=== PATIENT | male | born 1980 | race Two or more races ===

== ENCOUNTER → 2019-11-23 | Outpatient (CLI) | payer BC, SELFPAY ==
[2019-11-23 08:02] VITALS: BMI 35.6
[2019-11-23 11:22] LABS: Absolute Lymphocyte Count 1.55 X10^3/uL (0.83-4.51); Absolute Neutrophil Count 4.3 X10^3/uL (2.0-7.7); Basophil# 0.07 X10^3/uL; Basophil% 1.1 % (0-1); Eosinophil# 0.13 X10^3/uL; Hematocrit 48.4 % (40-54); Hemoglobin 16.9 g/dL (13.0-16.5); Lymphocyte # 1.55 X10^3/ul (4.0); Lymphocyte % 23.5 % (19-41); Mean Corp Hgb Conc 34.9 g/dL (32-36); Mean Corpuscular Hgb 31.1 pg (27.0-32.0); Mean Corpuscular Volume 89.1 fL (80-94); Mean Platelet Vol. 11.7 fl (6.2-12.0); Monocyte# 0.56 X10^3/uL; Monocyte% 8.5 % (0-10); NRBC Flagged by Analyzer 0 % (0-5); Neutrophil # 4.28 X10^3/uL (2.7-7.7); Neutrophil % 64.7 % (47-70); POSITIVE COUNT YES; Platelet Count 179 K/mm3 (150-450); RBC Distribution Width SD 42.2 fl (35.1-43.9); Red Blood Count 5.43 M/mm3 (4.6-6.2); White Blood Count 6.6 K/mm3 (4.4-11.0)
[2019-11-23 11:32] LABS: Differential Indicated SCAN CRITERIA MET
[2019-11-23 11:41] LABS: ALB/GLOB Ratio 1.1 RATIO (0.9-2.4); AST(SGOT) 36 U/L (15-37); Alanine Aminotransfer ALT/SGPT 53 U/L (16-61); Albumin, Serum 4.2 g/dL (3.2-5.0); Alkaline Phosphatase 66 U/L (45-117); BUN 14 mg/dL (7-18); BUN/Creat Ratio 16.4 RATIO (10-20); Calcium,Total 9.6 mg/dL (8.5-10.1); Cholesterol 127 mg/dL (200); Creatinine, Serum 0.85 mg/dL (0.70-1.30); EST Glomerular Filtration Rate 106 mL/min (>60); Est Glom Filt Rate - Afr Amer 128 mL/min (>60); Globulin 3.9 g/dL (2.2-4.2); Glucose 216 mg/dL (74-106); Protein, Total 8.1 g/dL (6.4-8.2); Triglycerides 58 mg/dL
[2019-11-23 11:42] LABS: Anion Gap 9 (5-15); Chloride 103 mmol/L (98-107); High Density Lipoprotein 53 mg/dL; Sodium Level 138 mmol/L (136-145); Very Low Density Lipoprotein 12 mg/dL (5-40)
[2019-11-23 15:21] LABS: Microalbumin,Random Urine 8.5 mg/L (NO RANGE EST.); Microalbumin:Creatinine Ratio 6.6 mg/g CRE (<30 mg/g CRE)
== END | disposition home or self-care (01) ==
LOC: LABSPEC 10:47
PROVIDERS: PCP Internal Medicine; Referring Provider Internal Medicine; Visit Provider Internal Medicine
DX: E10.9 Type 1 diabetes mellitus without complications (principal)
CPT/HCPCS: 80053; 80061; 82043; 82570; 85025

== ENCOUNTER → 2020-07-15 15:42 | Outpatient (CLI) | payer BC, SELFPAY ==
[2020-07-15 15:12] VITALS: BMI 34.6
[2020-07-15 16:50] LABS: Anion Gap 6 (5-15); BUN 19 mg/dL (7-18); BUN/Creat Ratio 23.3 RATIO (10-20); Calcium,Total 9.8 mg/dL (8.5-10.1); Chloride 102 mmol/L (98-107); Creatinine, Serum 0.81 mg/dL (0.70-1.30); EST Glomerular Filtration Rate 112 mL/min (>60); Est Glom Filt Rate - Afr Amer 135 mL/min (>60); Glucose 80 mg/dL (74-106); Potassium 3.7 mmol/L (3.5-5.1); Sodium Level 141 mmol/L (136-145)
== END ==
PROVIDERS: PCP Internal Medicine; Referring Provider Internal Medicine; Visit Provider Internal Medicine
DX: I10 Essential (primary) hypertension (principal)
CPT/HCPCS: 36415; 80048

== ENCOUNTER → 2021-03-10 08:49 | Outpatient (CLI) | payer OTHER, SELFPAY ==
[2021-03-10 12:39] LABS: Vitamin D,25 Hydroxy 36.4 ng/mL
[2021-03-10 12:54] LABS: ALB/GLOB Ratio 1.1 RATIO (0.9-2.4); AST(SGOT) 23 U/L (15-37); Alanine Aminotransfer ALT/SGPT 53 U/L (16-61); Albumin, Serum 4.1 g/dL (3.2-5.0); Alkaline Phosphatase 58 U/L (45-117); Anion Gap 9 (5-15); BUN 19 mg/dL (7-18); BUN/Creat Ratio 25.1 RATIO (10-20); Calcium,Total 9.4 mg/dL (8.5-10.1); Chloride 105 mmol/L (98-107); Cholesterol 137 mg/dL (200); Creatinine, Serum 0.76 mg/dL (0.70-1.30); EST Glomerular Filtration Rate 121 mL/min (>60); Est Glom Filt Rate - Afr Amer 147 mL/min (>60); Globulin 3.9 g/dL (2.2-4.2); Glucose 168 mg/dL (74-106); High Density Lipoprotein 56 mg/dL; Potassium 3.6 mmol/L (3.5-5.1); Sodium Level 138 mmol/L (136-145); Thyroid Stim Hormone (TSH) 1.99 uIU/mL (0.358-3.74); Triglycerides 48 mg/dL; Very Low Density Lipoprotein 10 mg/dL (5-40)
[2021-03-15 20:07] LABS: Testosterone, Free 18.72 ng/dL (5.00-21.00)
[2021-03-16 12:44] LABS: Testosterone, % Free 3.12 % (1.50-4.20); Testosterone, Total 600 ng/dL (264-916)
== END ==
PROVIDERS: Internal Medicine Endocrinology, Diabetes & Metabolism; PCP Internal Medicine; Referring Provider Nurse Practitioner Family; Visit Provider Nurse Practitioner Family
DX: E10.9 Type 1 diabetes mellitus without complications (principal); E78.2 Mixed hyperlipidemia; I10 Essential (primary) hypertension; R53.83 Other fatigue
CPT/HCPCS: 36415; 80053; 80061; 82306; 84402; 84403; 84443

== ENCOUNTER → 2021-11-25 | Outpatient (CLI) | payer OTHER, SELFPAY ==
[2021-11-25 12:44] LABS: Vitamin D,25 Hydroxy 28.1 ng/mL
[2021-11-25 12:50] LABS: ALB/GLOB Ratio 1.1 RATIO (0.9-2.4); AST(SGOT) 27 U/L (15-37); Alanine Aminotransfer ALT/SGPT 56 U/L (16-61); Albumin, Serum 3.8 g/dL (3.2-5.0); Alkaline Phosphatase 57 U/L (45-117); Anion Gap 3 (5-15); BUN 18 mg/dL (7-18); BUN/Creat Ratio 21.4 RATIO (10-20); Calcium,Total 8.9 mg/dL (8.5-10.1); Chloride 107 mmol/L (98-107); Cholesterol 134 mg/dL (200); Creatinine, Serum 0.84 mg/dL (0.70-1.30); EST Glomerular Filtration Rate 107 mL/min (>60); Est Glom Filt Rate - Afr Amer 129 mL/min (>60); Globulin 3.6 g/dL (2.2-4.2); Glucose 175 mg/dL (74-106); High Density Lipoprotein 46 mg/dL; Potassium 4.3 mmol/L (3.5-5.1); Protein, Total 7.4 g/dL (6.4-8.2); Sodium Level 141 mmol/L (136-145); Thyroid Stim Hormone (TSH) 2.37 uIU/mL (0.358-3.74); Triglycerides 47 mg/dL; Very Low Density Lipoprotein 9 mg/dL (5-40)
== END | disposition home or self-care (01) ==
LOC: BIMLAB 08:46
PROVIDERS: PCP Internal Medicine; Referring Provider Nurse Practitioner Family; Visit Provider Nurse Practitioner Family
DX: E10.65 Type 1 diabetes mellitus with hyperglycemia (principal)
CPT/HCPCS: 36415; 80053; 80061; 82306; 84443

== ENCOUNTER → 2023-02-09 | Outpatient (CLI) | payer BC, SELFPAY ==
[2023-02-09 11:03] LABS: Vitamin D,25 Hydroxy 45.9 ng/mL
[2023-02-09 11:07] LABS: Hemoglobin A1c 7.1 % (3.8-5.6)
[2023-02-09 11:11] LABS: Microalbumin,Random Urine 9.5 mg/L (NO RANGE EST.); Microalbumin:Creatinine Ratio 7.7 mg/g CRE (<30 mg/g CRE)
[2023-02-09 11:14] LABS: ALB/GLOB Ratio 1.1 RATIO (0.9-2.4); AST(SGOT) 34 U/L (15-37); Alanine Aminotransfer ALT/SGPT 70 U/L (16-61); Alkaline Phosphatase 67 U/L (45-117); Anion Gap 3 (5-15); BUN 12 mg/dL (7-18); BUN/Creat Ratio 13.5 RATIO (10-20); Calcium,Total 8.9 mg/dL (8.5-10.1); Chloride 103 mmol/L (98-107); Cholesterol 161 mg/dL (200); Creatinine, Serum 0.89 mg/dL (0.70-1.30); EST Glomerular Filtration Rate 100 mL/min (>60); Est Glom Filt Rate - Afr Amer 121 mL/min (>60); Globulin 3.7 g/dL (2.2-4.2); Glucose 173 mg/dL (74-106); High Density Lipoprotein 63 mg/dL; Potassium 3.7 mmol/L (3.5-5.1); Protein, Total 7.7 g/dL (6.4-8.2); Sodium Level 136 mmol/L (136-145); Thyroid Stim Hormone (TSH) 3.02 uIU/mL (0.358-3.74); Triglycerides 57 mg/dL; Very Low Density Lipoprotein 11 mg/dL (5-40)
== END | disposition home or self-care (01) ==
LOC: LAB 10:14
PROVIDERS: PCP Internal Medicine; Referring Provider Nurse Practitioner Family; Visit Provider Nurse Practitioner Family
DX: E10.65 Type 1 diabetes mellitus with hyperglycemia (principal); E55.9 Vitamin D deficiency, unspecified
CPT/HCPCS: 36415; 80053; 80061; 82043; 82306; 82570; 83036; 84443

== ENCOUNTER → 2025-01-17 | Outpatient (CLI) | payer OTHER, SELFPAY ==
--- OUTSIDE RECORDS SUMMARY | 2025-01-17 06:49 | XMS RPT_ITS | CCD ---
Author Organization [facility] Care Team Providers Care Straddle Truck Driver Name Role Phone Dr. Chong Lopez Primary Care Provider Dr. Chong Lopez Referring Provider [phone] YADIEL Stephens Attending Provider TERRY CHATTERJEE Attending Unavailable Ben Fung MD Primary Care Provider NITO MEEHAN Attending Unavailable BEN FUNG Primary Care Unavailable Oleghe, Efewongbe Primary Care Unavailable Aurora Stephens Attending Unavailable Oleghe, Efewongbe Referring Unavailable Aurora Stephens Attending Unavailable Oleghe, Efewongbe Referring Unavailable Oleghe, Efewongbe Primary Care Unavailable Aurora Stephens Attending Unavailable Oleghe, Efewongbe Referring Unavailable Oleghe, Efewongbe Primary Care Unavailable Medications Current Medications Medication Drug Class(es) Dates Sig (Normalized) Sig (Original) atorvastatin 40 mg oral tablet (10 sources) HMG-CoA Reductase Inhibitor Start: 09-27-2019 End: 09-17-2021 take 40 mg by mouth once daily Atorvastatin Active 40 MG PO DAILY September 17, 2021 12:57pm Flash Glucose Scanning Austin (Freestyle Genie 2 Austin) misc (2 sources) Start: 08-24-2021 Flash Glucose Scanning Austin (Freestyle Genie 2 [place]) misc Active 0 .ROUTE .MEDSUPPLY August 24, 2021 11:21am As directed Start: 04-07-2021 End: 08-24-2021 Flash Glucose Scanning Reade r (Freestyle Genie 2 [place]) misc Discontinued 0 .ROUTE .MEDSUPPLY April 07, 2021 1:25pm February 14th, 2022 11:21am As directed Flash Glucose Sensor (Freest yle Genie 2 Sensor) kit (2 sources) Start: 07-20-2021 Flash Glucose Sensor (Freestyle Genie 2 Sensor) kit Active 0 .ROUTE .MEDSUPPLY 2 July 20, 2021 9:27am As directed Start: 04-07-2021 End: 07-20-2021 Flash Glucose Sensor (Freest yle Genie 2 Sensor) kit Discontinued 0 .ROUTE .MEDSUPPLY 2 April 07, 2021 1:26pm July 20, 2021 9:27am As directed hydroCHLOROthiazide 25 mg / losartan potassium 100 mg oral tablet (4 sources) Thiazide Diuretic, Angiotensin 2 Receptor Jaclyn Start: 10-10-2020 End: 10-13-2021 take 1 tablet by mouth once daily Losartan-Hydrochlorothiazide Active 1 TABLET PO DAILY 90 October 13, 2021 10:57pm 3 ml insulin glargine 100 unt/ml pen injector (7 sources) Insulin Analog Start: 10-10-2020 End: 07-20-2021 Insulin Glargine (Lantus Solostar U-100 Insulin) 100 unit/mL (3 mL) insulin pen Active 70 UNIT SC DAILY 63 July 20, 2021 9:27am Start: 09-27-2019 End: 10-10-2020 Insulin Glargine (Lantus Janey ostar U-100 Insulin) 100 unit/mL (3 mL) insulin pen Discontinued 80 UNIT SC DAILY 30 July 22, 2020 12:42pm October 10, 2020 8:29am 3 ml insulin lispro 100 unt/ml pen injector (8 sources) Insulin Analog Start: 09-27-2019 End: 07-20-2021 Insulin Lispro (Humalog Kwikpen Insulin) 100 unit/mL insulin pen Active 20 UNIT SC 3 to 4 times per day 72 July 20, 2021 9:27am insulin lispro ( HUMALOG KWIKPEN INSULIN SUBCUTANEOUS) Inject subcutaneously. 0 Active Comment on above: Inject subcutaneousl y. Pen Needle,Diabetic, Disp Unit (3 sources) Start: 10-19-2021 Pen Needle,Diabetic, Disp Unit Active 0 .ROUTE .MEDSUPPLY 360 October 19, 2021 1:05pm 4x/day Start: 11-04-2020 End: 04-11-2022 Pen Needle,Diabetic, Disp Un it Discontinued 0 .ROUTE .MEDSUPPLY 100 November 04, 2020 12:19pm October 19, 2021 1:06pm as directed Start: 11-04-2020 End: 11-04-2020 Pen Needle,Diabetic, Disp Un it Discontinued 0 .ROUTE .MEDSUPPLY 100 November 04, 2020 12:13pm November 04, 2020 12:19pm as directed sertraline 50 mg oral tablet (1 source) Serotonin Reuptake Inhibitor Start: 11-25-2021 take 50 mg by mouth once daily Sertraline Active 50 MG PO DAILY November 25, 2021 8:40am Completed/Discontinued Medications Medication Drug Class(es) Dates Sig (Normalized) Sig (Original) Blood-Glucose Sensor (Dexcom G6 Sensor) device (4 sources) Start: 03-19-2021 End: 07-20-2021 Blood-Glucose Sensor (Dexcom G6 Sensor) device Discontinued 0 .ROUTE .MEDSUPPLY 3 March 19, 2021 3:06pm July 20, 2021 9:18am As directed Start: 03-10-2021 End: 03-19-2021 Blood-Glucose Sensor (Dexcom G6 Sensor) device Discontinued 0 .ROUTE .MEDSUPPLY 3 March 10, 2021 9:57am March 19, 2021 3:07pm As directed Start: 02-11-2021 End: 03-10-2021 Blood-Glucose Sensor (Dexcom G6 Sensor) device Discontinued 0 .ROUTE .MEDSUPPLY 3 February 11, 2021 8:28am March 10, 2021 9:57am As directed Start: 07-01-2020 End: 02-11-2021 Blood-Glucose Sensor (Dexcom G6 Sensor) device Discontinued 0 .ROUTE .MEDSUPPLY 3 July 01, 2020 3:29pm February 11, 2021 8:28am As directed Blood-Glucose Transmitter (Dexcom G6 Transmitter) device (4 sources) Start: 03-19-2021 End: 07-20-2021 Blood-Glucose Transmitter (Dexcom G6 Transmitter) device Discontinued 0 .ROUTE .MEDSUPPLY 1 March 19, 2021 12:19pm July 20, 2021 9:18am As directed Start: 03-19-2021 End: 03-19-2021 Blood-Glucose Transmitter (D excom G6 Transmitter) device Discontinued 0 .ROUTE .MEDSUPPLY 1 March 19, 2021 11:01am March 19, 2021 12:19pm As directed Start: 03-10-2021 End: 03-19-2021 Blood-Glucose Transmitter (D excom G6 Transmitter) device Discontinued 0 .ROUTE .MEDSUPPLY 1 March 10, 2021 9:57am March 19, 2021 11:01am As directed Start: 07-01-2020 End: 03-10-2021 Blood-Glucose Transmitter (D excom G6 Transmitter) device Discontinued 0 .ROUTE .MEDSUPPLY July 01, 2020 3:28pm March 10, 2021 9:57am As directed enalapril maleate 20 mg oral tablet (2 sources) Angiotensin Converting Enzyme Inhibitor Start: 09-27-2019 End: 10-10-2020 take 20 mg by mouth once daily Enalapril Maleate Discontinued 20 MG PO DAILY November 23, 2019 11:05am October 10, 2020 8:49am hydroCHLOROthiazide 12.5 mg oral tablet (3 sources) Thiazide Diuretic Start: 09-27-2019 End: 10-10-2020 take 12.5 mg by mouth once daily Hydrochlorothiazide Discontinued 12.5 MG PO DAILY November 23, 2019 11:05am October 10, 2020 8:49am HYDROCHLOROTHIAZ SHARON ORAL Take by mouth. 0 Active Comment on above: Take by mouth. insulin glargine,hum.rec.anlog (LANTUS SUBCUTANEOUS) (1 source) insulin glargine,hum.rec.anlo g (LANTUS SUBCUTANEOUS) Inject subcutaneously. 0 Active Comment on above: Inject subcutaneousl y. ketorolac tromethamine 10 mg oral tablet (1 source) Nonsteroidal Anti-inflammatory Drug, Cyclooxygenase Inhibitor Start: take 1 tablet by mouth every six hours as needed ketorolac (TORADOL) 10 mg tablet Take 1 tablet by mouth every 6 hours as needed. 10 tablet 0 07/01/2018 Active Comment on above: Take 1 tablet by ignacio th every 6 hours as needed. lactobacillus acidophilus 460 mg oral capsule (1 source) Start: take 1 capsule by mouth once daily Lactobacillus acidophilus (FLORAJEN) 460 mg (20 billion cell) cap Indications: Diarrhea, unspecified type Take 1 capsule by mouth once daily. 30 capsule 0 10/27/2017 Active Comment on above: Take 1 capsule by mo uth once daily. methocarbamol 750 mg oral tablet (1 source) Muscle Relaxant Start: 024 take 1 tablet by mouth three times daily as needed methocarbamol (ROBAXIN-750) 750 mg tablet Take 1 tablet by mouth three times a day as needed. 60 tablet 0 08/31/2023 Active Comment on above: Take 1 tablet by ignacio th three times a day as needed. ondansetron 4 mg disintegrating oral tablet (1 source) Serotonin-3 Receptor Antagonist Start: take 1 tablet by mouth every six hours ondansetron orally disintegrating (ZOFRAN ODT) 4 mg disintegrating tablet Take 1 tablet by mouth every 6 hours. 12 tablet 0 07/01/2018 Active Comment on above: Take 1 tablet by ignacio th every 6 hours. tamsulosin hydrochloride 0.4 mg oral capsule (1 source) alpha-Adrenergic Jaclyn Start: take 1 capsule by mouth once daily at bedtime tamsulosin ER (FLOMAX) 0.4 mg cap Take 1 capsule by mouth daily at bedtime for 7 days. 7 capsule 0 07/01/2018 Active Comment on above: Take 1 capsule by mo uth daily at bedtime for 7 days. Problems Active Problems Problem Classification Problem Date Documented Da te Episodic/Chronic Calculus of urinary tract (1 source) Calculus of kidney; Translations: [Calculus of kidney] Onset: 07-01-2018 Episodic Diabetes mellitus with complications (1 source) Type 1 diabetes mellitus with hyperglycemia; Translations: [Type 1 diabetes mellitus with hyperglycemia] Onset: 07-16-2024 Chronic Diabetes mellitus without complication (3 sources) Type 1 diabetes mellitus; Translations: [Type 1 diabetes mellitus without complications] Onset: 07-16-2024 Chronic Disorders of lipid metabolism (2 sources) Mixed hyperlipidemia; Translations: [Mixed hyperlipidemia] Onset: 02-16-2024 Chronic Essential hypertension (3 sources) Hypertensive disorder; Translations: [Essential (primary) hypertension] Onset: 02-16-2024 Chronic Malaise and fatigue (1 source) Fatigue; Translations: [Other fatigue] Episodic Mood disorders (2 sources) Depressive disorder; Translations: [Depression] Chronic Other male genital disorders (3 sources) Male erectile dysfunction, unspecified; Translations: [Erectile dysfunction] Onset: 04-24-2022 Chronic Other nutritional; endocrine; and metabolic disorders (1 source) Obesity; Translations: [Obesity, unspecified] Chronic Other nutritional; endocrine; and metabolic disorders (1 source) Body mass index 30+ - obesity; Translations: [Obesity, unspecified] Chronic Other nutritional; endocrine; and metabolic disorders (1 source) Obesity, unspecified; Translations: [Obesity, unspecified] Chronic Other nutritional; endocrine; and metabolic disorders (1 source) Other obesity due to excess calories; Translations: [Other obesity due to excess calories] Onset: 02-16-2024 Chronic Other nutritional; endocrine; and metabolic disorders (1 source) Body mass index (BMI) 33.0-33.9, adult; Translations: [Body mass index [BMI] 33.0-33.9, adult] Onset: 02-16-2024 Chronic Spondylosis; intervertebral disc disorders; other back problems (2 sources) Cervical spondylosis without myelopathy; Translations: [Spondylosis without myelopathy or radiculopathy, cervical region] Onset: 08-31-2023 08-31-2023 Chronic Past or Other Problems Problem Classification Problem Date Documented Da te Episodic/Chronic Residual codes; unclassified (1 source) Early satiety; Translations: [Early satiety] Onset: 02-16-2024 Episodic Results Test Name Value Interpretation Reference Range Facility Endocrinology Visit Reporton 07-16-2024 Endocrinology Visit Report [facility] [address] [place] [address] OFFICE VISIT Date of Service: 07/16/24 MR#: [id number] Acct: [id number] Name: PURVI VIZCAINO Rep #: [id number] : 1980 Provider: YADIEL zimmer Age/Sex: 43/M Location: [facility] [place] Status: Signed Intake Vital Signs 02/06/24 08:36 07/16/24 14:03 Height 5 ft 5 in 5 ft 5 in Weight: 212 lb 220 lb 2 oz BMI 35.2 36.6 BP 137/81 H 128/84 H Blood Pressure Location Lt brachial Rt brachial Position Sitting Sitting Pulse 81 87 Pulse Source Monitor Monitor Pulse Oximetry (%) 97 97 Oxygen Delivery Method room air room air Intake Visit Reasons: 5 M FU Chief Complaint: f/u diabetes Is patient in pain?: No Allergies No Known Allergies Allergy (Verified 07/16/24 14:07) Medications ???Medication ???Instructions ???Recorded ???Confirmed ???Type Basaglar KwikPen U-100 Insulin 100 65 unit (0.65 mL) subcut DAILY #60 03/13/24 07/16/24 Rx unit/mL (3 mL) subcutaneous mL (insulin glargine) pen needle,diabetic, disp unit 31 #360 ea 03/21/24 07/16/24 Rx gauge x 3/16, remover and disposal unit insulin lispro 100 unit/mL 30 unit (0.3 mL) subcut TID #81 mL 04/09/24 07/16/24 Rx subcutaneous pen (Humalog KwikPen (U-100) Insulin) blood-glucose sensor (FreeStyle #2 ea 05/08/24 07/16/24 Rx Genie 3 Plus Sensor device) bupropion HCl 150 mg 24 hr tablet, See Rx Instructions .Route 05/25/24 07/16/24 Rx extended release .COMPLEX #90 tabs atorvastatin 40 mg tablet 40 mg PO DAILY #90 tabs 07/16/24 07/16/24 Rx blood-glucose sensor (Dexcom G7 #3 ea 07/16/24 07/16/24 Rx Sensor device) insulin pump cart,auto,BT,G6/7 #10 ea 07/16/24 07/16/24 Rx (Omnipod 5 G6-G7 Pods (Gen 5) subcutaneous cartridge) insulin pump cartridge,auto #1 ea 07/16/24 07/16/24 Rx dose,BT,G6/G7 with controller subcutaneous (Omnipod 5 G6-G7 Intro Kit(Gen 5) subcutaneous cartridge and controller) losartan 100 1 tab PO DAILY #90 tabs 07/16/24 07/16/24 Rx mg-hydrochlorothiazide 25 mg tablet PFSH Medical History PTSD (post-traumatic stress disorder) Erectile dysfunction Fatigue Kidney stones Hyperlipemia Hypertension Diabetes Surgical History History of shoulder surgery Family History Mother Arthritis Cancer Father Arthritis Hypertension Hyperlipemia Brother Diabetes Kidney disease Social History Smoking Status: Never smoker alcohol intake: current alcohol intake frequency: holidays/special occasions only substance use type: does not use what type of physical activity do you participate in: other details: Fitness frequency: daily duration: 30-45 minutes/day HPI HPI Chief Complaint: f/u diabetes Details: PURVI VIZCAINO, is a 43 M who presents to the office today for evaluation and management of diabetes. A1C today is 7.2%, increased slightly from 02/06/24 at 7.0%. He has gained 8 lbs. Currently taking Lantus 55 u once daily and Humalog 15-25 u TIDCM. CGM tracings reviewed- he is having post meal elevations, he treats these aggressively often times resulting in lows. He has lows during sleeping hours. Denies any significant episode of hypoglycemia that has required assistance from others. We have discussed insulin pumps multiple times in the past, he has been hesitant. BP controlled. Currently taking losartan-HCTZ 100-25 mg once daily. He takes a daily statin. He complains of myalgias with use. He is over due for labs. Denies any acute concerns. ROS Const Constitutional: Positive for weight change (gain); No fatigue ENT ENT: No dizziness/vertigo Cardio Cardiology: No chest pain at rest, chest pain with exertion, shortness of breath or palpitations Musc Musculoskeletal: Positive for joint pain Skin Skin: No wounds Endo Endocrine: Positive for weight change (gain); No fatigue Exam Const General: cooperative, healthy appearing, comfortable and no acute distress Nutritional Appearance: obese Orientation: alert, awake and oriented x3 HENMT Head: normal to inspection Ears: hearing grossly normal bilaterally Nose: external nose normal Face and sinus: normal facial exam Eyes General: appearance normal, both eyes and all related structures Alignment and Position: alignment normal Sclera: sclerae normal Neck Neck: normal visual inspection Chest Chest palpation inspection: normal inspection of the chest Resp Effort Inspection: normal respiratory effort, able to speak in complete sentences, symmetric chest movement and no audible wheezes (more content not included)... [facility] Endocrinology Visit Reporton 02-06-2024 Endocrinology Visit Report [facility] [address] [facility] [place] [address] OFFICE VISIT Date of Service: 02/06/24 MR#: [id number] Acct: [id number] Name: PURVI VIZCAINO Rep #: [id number] : 1980 Provider: YADIEL zimmer Age/Sex: 43/M [place] [facility] [place]: Signed Intake Vital Signs 09/12/23 08:07 02/06/24 08:36 Height 5 ft 5 in 5 ft 5 in Weight: 214 lb 4 oz 212 lb BMI 35.6 35.2 BP 136/82 H 137/81 H Blood Pressure Location Rt brachial Lt brachial Position Sitting Respiration 18 Pulse 78 81 Pulse Source Monitor Monitor Temp 98.6 F Temp Source Temporal Pulse Oximetry (%) 99 97 Oxygen Delivery Method room air room air Intake Visit Reasons: 5 M FU, RS 12/11 Chief Complaint: f/u diabetes Respiratory Therapy Manager Required: No Accompanied by: Self Is patient in pain?: No Allergies No Known Allergies Allergy (Verified 02/06/24 08:39) Medications ???Medication ???Instructions ???Recorded ???Confirmed ???Type atorvastatin 40 mg tablet 40 mg PO DAILY #90 tabs 09/12/23 02/06/24 Rx blood-glucose sensor (FreeStyle #2 ea 09/12/23 02/06/24 Rx Genie 3 Sensor device) insulin glargine 100 unit/mL (3 65 unit (0.65 mL) subcut DAILY 09/12/23 02/06/24 Rx mL) subcutaneous pen (Lantus #58.5 mL Solostar U-100 Insulin) losartan 100 1 tab PO DAILY #90 tabs 09/12/23 02/06/24 Rx mg-hydrochlorothiazide 25 mg tablet pen needle,diabetic, disp unit 31 #360 ea 09/12/23 02/06/24 Rx gauge x 3/16, remover and disposal unit insulin lispro 100 unit/mL 30 unit (0.3 mL) subcut TID #81 mL 10/20/23 02/06/24 Rx subcutaneous pen (Humalog KwikPen (U-100) Insulin) bupropion HCl 150 mg 24 hr tablet, See Rx Instructions .Route 11/28/23 02/06/24 Rx extended release .COMPLEX #90 tabs PFSH Medical History PTSD (post-traumatic stress disorder) Erectile dysfunction Fatigue Kidney stones Hyperlipemia Hypertension Diabetes Surgical History History of shoulder surgery Family History Mother Arthritis Cancer Father Arthritis Hypertension Hyperlipemia Brother Diabetes Kidney disease Social History Smoking Status: Never smoker alcohol intake: current alcohol intake frequency: holidays/special occasions only substance use type: does not use what type of physical activity do you participate in: other details: Fitness frequency: daily duration: 30-45 minutes/day HPI HPI Chief Complaint: f/u diabetes Details: PURVI VIZCAINO, is a 43 M who presents to the office today for evaluation and management of diabetes. A1C today is 7.0%, improved from 09/12/23 at 7.4%. he has lost another 2 lbs. CGM tracings reviewed: he is having occasional post meal elevations. He is having recurring lows after correcting for elevations. Currently taking Lantus 55 u once daily, and Humalog 15-40 u depending on carb servings. We have discussed insulin pumps at multiple prior appointments, he is not interested at this time. BP today is 137/81, consistent with last appt. Currently taking losartan-HCTZ 100-25 mg once daily. Hx of high cholesterol, currently taking atorvastatin 40 mg once daily. He complains of intermittent early satiety. Denies any significant weight loss, blood in stool, significant fatigue, or family history of colon ca. Of note, he typically smokes marijuana before smiley pper with improved appetite. He is also on Wellbutrin. He is due for labs. ROS Const Constitutional: No weight change Gastro GI: Positive for feeling full early; No Black,tarry stools Endo Endocrine: No weight change Exam Const General: cooperative, healthy appearing, comfortable and no acute distress Nutritional Appearance: obese Orientation: alert, awake and oriented x3 HENMT Head: normal to inspection Ears: hearing grossly normal bilaterally Nose: external nose normal Face and sinus: normal facial exam Eyes General: appearance normal, both eyes and all related structures Alignment and Position: alignment normal Sclera: sclerae normal Neck Neck: normal visual inspection Carotids: normal carotid upstroke Chest Chest palpation inspection: normal inspection of the chest Resp Effort Inspection: normal respiratory effort, able to speak in complete sentences, symmetric chest movement, normal respiratory pattern, no audible wheezes and no cough Auscultation: Bilateral: Clear to Auscultation Cardio Rate: regular rate Rhythm: regular rhythm Heart Sounds: S1 normal and S2 normal Bruits: no carotid bruits GI Inspection: normal to inspection and obesity Musc (more content not included)... [facility] Endocrinology Visit Reporton 09-12-2023 Endocrinology Visit Report [facility] [address] [facility] [address] [place] [address] OFFICE VISIT Date of Service: 09/12/23 MR#: [id number] Acct: [id number] Name: PURVI VIZCAINO Rep #: [id number] : 1980 Provider: YADIEL zimmer Age/Sex: 42/M [place] [facility] [place]: Signed Intake Vital Signs 05/16/23 08:36 09/12/23 08:07 Height 5 ft 5 in 5 ft 5 in Weight: 217 lb 4 oz 214 lb 4 oz BMI 36.1 35.6 BP 146/84 H 136/82 H Blood Pressure Location Rt brachial Rt brachial Position Sitting Respiration 16 18 Pulse 80 78 Pulse Source Monitor Monitor Temp 97.8 F 98.6 F Temp Source Temporal Temporal Pulse Oximetry (%) 98 99 Oxygen Delivery Method room air room air Intake Visit Reasons: 3.5 M FU Chief Complaint: f/u diabetes Respiratory Therapy Manager Required: No Accompanied by: Self Allergies No Known Allergies Allergy (Verified 09/12/23 08:12) Nurse's Note: Room 3 [facility] Medical History Diabetes Erectile dysfunction Fatigue Hyperlipemia Hypertension Kidney stones PTSD (post-traumatic stress disorder) Surgical History History of shoulder surgery Family History Mother Arthritis Cancer Father Arthritis Hypertension Hyperlipemia Brother Diabetes Kidney disease Social History Smoking Status: Never smoker alcohol intake: current alcohol intake frequency: holidays/special occasions only substance use type: does not use what type of physical activity do you participate in: other details: Fitness frequency: daily duration: 30-45 minutes/day HPI HPI Chief Complaint: f/u diabetes Details: PURVI VIZCAINO, is a 42 M who presents to the office today for evaluation and management of diabetes. A1C today is 7.4%, increased from 05/16/23 at 7.1%. He has lost 3 lbs. CGM tracings reviewed- GMI is 7.0%, blood sugars are <70 3% of the time. He is having lows followed by rebound elevations. He aggressively treats elevations with Humalog. Currently taking Lantus 60-64 u once daily- this is a higher dose than what was discussed at previous appointment, and Humalog 12-24 u TIDCM- this is a lower dose than discussed at previous appointment. We discussed insulin pump therapy at his last appointment, he does not wish to pursue at this time. BP today is 136/82, currently taking losartan-HCTZ 100-25 mg once daily. Reports compliance with medication regimen. Labs are up to date. Denies any acute concerns. Exam Const General: cooperative, healthy appearing, comfortable and no acute distress Nutritional Appearance: obese Orientation: alert, awake and oriented x3 [facility] Head: normal to inspection Ears: hearing grossly normal bilaterally Nose: external nose normal Face and sinus: normal facial exam Eyes General: appearance normal, both eyes and all related structures Alignment and Position: alignment normal Sclera: sclerae normal Neck Neck: normal visual inspection Carotids: normal carotid upstroke Chest Chest palpation inspection: normal inspection of the chest Resp Effort Inspection: normal respiratory effort, able to speak in complete sentences, symmetric chest movement, normal respiratory pattern, no audible wheezes and no cough Auscultation: Bilateral: Clear to Auscultation Cardio Rate: regular rate Rhythm: regular rhythm Heart Sounds: S1 normal and S2 normal Bruits: no carotid bruits GI Inspection: normal to inspection and obesity Musc Cervical Spine: normal cervical lordosis Thoracic/Lumbar Spine: thoracic and lumbar spine normal to inspection Skin General: no rashes or lesions noted Lesions: no lesions Rashes: no rashes Trauma: no lacerations or abrasions Wounds: no wounds Neuro General: patient alert, patient awake and patient oriented x3 Cognition: normal cognition Speech: speech normal Gait: normal gait Extrem General: normal to inspection and no pedal edema Psych Appearance: grossly normal Mental Status: mental status grossly normal Mood: congruent mood Affect: normal affect Speech and Movement: speech and movement normal Attitude: cooperative Thought Process: normal Thought Content: normal Judgment: judgment good Results POC A1C POC A1C 7.4 % Last Edit by Colleen Cornejo LPN on 09/12/23 08:16 Coding Level of Care Code Off vis,est,level 4 Diagnoses Type 1 diabetes mellitus with hyperglycemia E10.65 Diabetes mellitus complication status: with hyperglycemia Essential hypertension I10 Hypertension type: essential hypertension Mixed hyperlipidemia E78.2 Obesity (BMI 30-39.9) E66.9 Assessment and Plan (more content not included)... [facility] CNOVon 08-31-2023 CNOV Office Visit (NSFRVW ) ----- GRETCHENRICKY BAN Naresh ([id number]) 1980 M Date Time Provider Department 08/31/23 1:00 PM NITO MEEHAN NSFRVW During your visit today, we recorded the following information about you: Pulse Blood pressure Weight Height 91/minute 145/81 97.5 kg 1.676 m Nito Meehan MD 09/12/2023 7:51 AM Signed SPINE SURGERY NEW PATIENT This is an in-person visit. PCP: Ben Fung MD REFERRING PROVIDER: Not indicated SUBJECTIVE HISTORY OF PRESENT ILLNESS: Purvi Vizcaino is a 42 year old male presenting alone. The patient reports pain in his neck that started about 9 years ago. When he sits on the couch and watch TV, work, and use his phone his pain is bad. 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 When lying flat or stretching, the pain is better. He has not taken anything for the pain. He denies getting any injections. Pain occurs the most at the end of the day. CHIEF COMPLAINT: Neck pain PRECIPITATING EVENT: Work-related DURATION OF SYMPTOMS: Greater Than 1 Year PAIN EVALUATION 08/31/2023 1248 Pain Level: 2 Pain Location: Neck Description: Dull;Aching Frequency: Intermittent Pain Radiation: Neck pain may radiate to the shoulders Aggravating Factors: Working, watching TV, or using phone Alleviating Factors: Lying supine, Stretching Pain Ratio: 2/10 DERMATOMAL DISTRIBUTION: Not applicable AMBULATORY STATUS: Independent [facility] ANTIPLATELET OR ANTICOAGULATION STATUS: No PREVIOUS CONSERVATIVE TREATMENTS: None PREVIOUS SPINAL SURGERY: None There is no problem list on file for this patient. PAST MEDICAL HISTORY Diagnosis Date Diabetes (HCC) Hypertension PAST SURGICAL HISTORY Procedure Laterality Date ORTHOPEDICS SURGERY HX right shoulder scope No family history on file. Social History Tobacco Use Smoking status: Never Smokeless tobacco: Former Substance Use Topics Alcohol use: No Drug use: Yes Types: Marijuana Comment: last used 1 week ago ALLERGIES No Known Allergies MEDICATIONS: ketorolac (TORADOL) 10 mg tablet Take 1 tablet by mouth every 6 hours as needed. ondansetron orally disintegrating (ZOFRAN ODT) 4 mg disintegrating tablet Take 1 tablet by mouth every 6 hours. insulin glargine,hum.rec.anlog (LANTUS SUBCUTANEOUS) Inject subcutaneously. insulin lispro (HUMALOG KWIKPEN INSULIN SUBCUTANEOUS) Inject subcutaneously. HYDROCHLOROTHIAZIDE ORAL Take by mouth. Lactobacillus acidophilus (FLORAJEN) 460 mg (20 billion cell) cap Take 1 capsule by mouth once daily. methocarbamol (ROBAXIN-750) 750 mg tablet Take 1 tablet by mouth three times a day as needed. tamsulosin ER (FLOMAX) 0.4 mg cap Take 1 capsule by mouth daily at bedtime for 7 days. REVIEW OF SYSTEMS: PAIN ASSESSMENT: See HPI. GENERAL: Denies fever, chills malaise and weight loss. HEENT: No recent change in vision or hearing. CARDIOVASCULAR: Denies chest pain, history of A-fib, valvular disease, or pacemaker/ICD. RESPIRATORY: Denies SOB, sputum production, and hemoptysis. GI: Denies GI ulcers, inflammatory disease, or liver disease. : Denies change in frequency or urgency, kidney disease, and burning with urination. MUSCULOSKELETAL: Negative for joint pain or swelling, back pain or muscle pain. SKIN: Denies rash or itching. PSYCHOLOGICAL: Denies uncontrolled depression or anxiety. NEURO: Denies CVA, seizures, headaches. ENDOCRINE: Denies diabetes, thyroid disease. HEMATOLOGY/LYMPHOLOGY: Denies cancer, bleeding or clotting disorders, anemia,and DVT's. ALLERGIC/IMMUNOLOGICAL: Denies risks for infection, or recent MRSA infections. Patient Entered Questionnaires PROMIS Score Percentiles Percentiles provide an indication of how the patient's score ranks in relation to the general population. Higher percentile rankings indicate better function/quality of life. 50th percentile is the average of the general population and indicates half of respondents had a worse score. Depression Screening: PHQ-9 Self-Harm (Item 9) response options: 0 Not at all 1 Several days 2 More than half the days 3 Nearly every day PHQ-9 Levels: 0-4 No to mild depression 5-9 Mild depression 10-14 Moderate depression 15-19 Moderately severe depression 20-27 Severe depression OBJECTIVE: PHYSICAL EXAM BP 145/81 Pulse 91 Ht 167.6 cm (5' 6) Wt 97.5 kg (215 lb) SpO2 99% BMI 34.70 kg/m? Oriented x3 PERRL FS Motor: UE D 5/5, B 5/5, T 5/5, G 5/5, HI 5/5 LE HF 5/5, KE 5/5, DF 5/5, PF 5/5, EHL 5/5 Reflexes 2+ Naranjo negative NEURO TESTS: None DATA REVIEW MRI Cervical spine shows mild disc bulge possible herniation at C5-6 predominantly on the right side with no cord compression and mild to moderate foraminal stenosis on the right. ASSESSMENT/PLAN (M47.812) Cervical spondylosis without myelopathy (primary encounter di (more content not included)... [facility] 36on 09-13-2022 36 Called Pt and resche duled appt to 4.6.23 @1140 [facility] with Darius Chatterjee APRN- DEL. Pt aware of appt d/t/l. [facility] 36 Name of Caller: Ricky gibbs Contact Reason for Appointment: Pt has an appt on 09/16/2022 at 8:00 AM that he needs to reschedule. Please advise, thank you. Office Name: Urology Medication Refills need, if any: n/a Medication Name: n/a [facility] Office Visiton 05-20-2022 Follow-up visit [id number] Ricky Vizcaino 1980 M Date Provider Department Center 05/20/2022 [id number]-WFVOSFTERRY CHATTERJEE [facility] URO None No family history on file Level of Service:08468 CO OFFICE/OUTPATIENT ESTABLISHED LOW MDM 20-29 MIN Reason for Visit and Comments: Erectile Dysfunction [771299] - 6 month follow up [facility] Progress Noteon 05-20-2022 Progress Note Terry ye APRN - CASE LOADER OPERATOR 05/20/2022 at 5:13 PM Urology Office Visit PATIENT NAME: Purvi Vizcaino DATE OF : 1980 TODAY'S DATE: 05/20/2022 CHIEF COMPLAINT: Chief Complaint Patient presents with Erectile Dysfunction 6 month follow up Subjective: Mr. Vizcaino is a 41 y.o. male who presents to the office regarding ED. He was last seen in the office on 11/19/2021 for Trimix teaching Right now hes at 0.1ml He reports a 20% rigidity . He is very frustrated with the Trimix. He states that he feels like it is not working but admits to giving up and not trying a higher dose. He feels like he popped a blood vessel and it turned his penis black and blue He states that his penis is back to its normal color but hes also upset that his is not sexual and does not like to endorse in sexual intercourse as much as he does. He feels like he was not able to put the trimix to good use yet. No issues with drawing up the medication. He is a diabetic and is familiar with needles given the insulin injections he utilizes Review of Systems Constitutional: Negative for chills and fever. Genitourinary: Negative for decreased urine volume, difficulty urinating, dysuria, flank pain, frequency, hematuria, penile discharge, penile pain, penile swelling and urgency. Past Medical History: History reviewed. No pertinent past medical history. Past Surgical History: History reviewed. No pertinent surgical history. Medications Prior to Admission medications Medication Sig Start Date End Date Taking? Authorizing Provider atorvastatin (Lipitor) 40 MG tablet Take 1 tablet by mouth in the morning. 08/16/21 Yes Historical Provider, Continuous Blood Gluc Painter Set (FreeStyle Genie 2 [place]) device Yes Historical Provider, Continuous Blood Gluc Sensor (FreeStyle Genie 2 Sensor) misc Yes Historical Provider, insulin glargine (Lantus SoloStar) 100 UNIT/ML pen inject 70 units subcutaneously once daily 07/27/21 Yes Historical Provider, insulin lispro (HumaLOG) 100 UNIT/ML injection inject 20 units subcutaneously 3-4 TIMES PER DAY 07/24/21 Yes Historical Provider, insulin pen needle 31G x 5 mm misc Inject under the skin if needed. Use as instructed Yes Historical Provider, losartan-hydroCHLOROthiaz sharon (Hyzaar) 100-25 MG tablet Take 1 tablet by mouth in the morning. 07/20/21 Yes Historical Provider, Vitals: BP (!) 141/74 Pulse 96 Ht 5' 6 (1.676 m) Wt 208 lb (94.3 kg) BMI 33.57 kg/m? Physical Exam Vitals and nursing note reviewed. Constitutional: General: He is not in acute distress. Appearance: Normal appearance. Pulmonary: Effort: Pulmonary effort is normal. Abdominal: General: Abdomen is flat. There is no distension. Palpations: There is no mass. Tenderness: There is no abdominal tenderness. There is no right CVA tenderness or left CVA tenderness. Genitourinary: Penis: Normal. Testes: Normal. Skin: General: Skin is warm and dry. Neurological: Mental Status: He is alert and oriented to person, place, and time. Labs: No results found for: CREATININE No results found for: HGB, HCT, PSA, TESTOSTERONE Radiology Review: N/A Procedure: N/A Impression/Plan Diagnoses and all orders for this visit: Erectile dysfunction, unspecified erectile dysfunction type - here for a follow up - using trimix for ED - right now utilizing 0.1 ml still with no success - continue with Papaverine 30mg/Phentolamine 2mg/Alprostadil 20mcg/mL but plan to trial at 0.2 and increase the injection dose by 0.02-0.03ml, up to 0.5ml total. If he does not achieve an erection firm enough for penetration then we may write him the high dose; given he is not experiencing any adverse effects. He will call and let us know Side effects/ Complications of penile injections: Priapism - if you experience an erection that lasts longer than 3-4 hours and/ or is painful, please seek treatment right away. A prolonged erection is a medical emergency and required immediate attention to prevent permanent injury. Have Sudaphed on hand at home and take as soon as you notice there is a problem. Apply ice to the area If the erection does not go away within 20 minutes, please come to the ER. Pain from inappropriate injection site or medication Bruising at site of injection Infection of penile tissue Pressure and/ or aching sensations due to medication Development of scar tissue at the site of injection. If significant, this can result in curvature of the penis, which can make intercourse difficult. custodial side effects (greater than 15 years) are unknown. Follow up in 3 months Follow Up: Follow up in about 3 months (around 08/20/2022) for ED/Trimex. --Terry Chatterjee, DEL, PRIMER CHARGER on 05/20/2022 at 5:13 PM An electronic signature was used to authenticate this note. Normal [facility] Basophil percentageon 2021 Bilirubin [Mass/Vol] 0.50 mg/dL 0.20-1.00 [facility] Work Phone: Comment on above: For patients on eltr ombopag therapy, use of Dimension Camilla TBIL is not recommended. Chloride [Moles/Vol] 107 mmol/L 98-107 [facility] Work Phone: Cholesterol [Mass/Vol] 134 mg/dL <200 [facility] Work Phone: Comment on above: <200 mg/dL Desirable 200-240 mg/dL Borderline >240 mg/dL High Risk Glucose [Mass/Vol] 175 mg/dL 74-106 [facility] Work Phone: Comment on above: Fasting Glucose resu lt greater than or equal to 126 mg/dL suggests DIABETES MELLITUS per A.D.A. criteria. Potassium [Moles/Vol] 4.3 mmol/L 3.5-5.1 [facility] Work Phone: [phone] Protein [Mass/Vol] 7.4 g/dL 6.4-8.2 [facility] Work Phone: [phone] Sodium [Moles/Vol] 141 mmol/L 136-145 [facility] Work Phone: [phone] Triglyceride [Mass/Vol] 47 mg/dL [facility] Work Phone: [phone] Comment on above: The drugs N-Acetylcy steine and Metamizole may falsely depress this assay.Serum Triglycerides Reference Interval Normal <150 mg/dL Borderline high 150 - 199 mg/dL High 200 - 499 mg/dL Very High > or = 500 mg/dL Laboratory - Chemistry and C hemistry - challengeon 11-25-2021 ALP [Catalytic activity/Vol] 57 U/L 45-117 [facility] Work Phone: [phone] ALT [Catalytic activity/Vol] 56 U/L 16-61 [facility] Work Phone: [phone] CO2 [Moles/Vol] 31.0 mmol/L 21.0-32.0 [facility] Work Phone: [phone] Globulin (S) [Mass/Vol] 3.6 g/dL 2.2-4.2 [facility] Work Phone: [phone] Urea nitrogen/Creatinin e [Mass ratio] 21.4 mg/mg 10-20 [facility] Work Phone: [phone] Laboratory - Hematology and Cell countson 11-25-2021 HbA1c (Bld) [Mass fraction] 7.1 % [facility] Work Phone: [phone] No Panel Informationon 11-25 Estimated GFR (MDRD) Amer 129 mL/min >60 [facility] Work Phone: [phone] Comment on above: GFR Calc Estimated GFR (MDRD) Non-Af Amer 107 mL/min >60 [facility] Work Phone: [phone] Comment on above: Non- GFR Calc Thyroid Stimulating Hormone (TSH) 2.37 uIU/mL 0.358-3.74 [facility] Work Phone: Vitamin D 25-Hydroxy 28.1 ng/mL [facility] Work Phone: Comment on above: Vitamin D 25(OH) Sta tus Range Deficiency <20 ng/mL (50nmol/L) Insufficiency 20 - 30 ng/mL (50 - 75 nmol/L) Sufficiency 30 - 100 ng/mL (75 - 250 nmol/L) Toxicity >100 ng/mL (>250 nmol/L) Serum or plasma albumin makayla urement (mass/volume)on 11-25-2021 Albumin [Mass/Vol] 3.8 g/dL 3.2-5.0 [facility] Work Phone: Serum or plasma albumin/glob ulin mass ratioon 11-25-2021 Albumin/Globulin [Mass ratio] 1.1 {ratio} 0.9-2.4 [facility] Work Phone: Serum or plasma calcium makayla urement (mass/volume)on 11-25-2021 Calcium [Mass/Vol] 8.9 mg/dL 8.5-10.1 [facility] Work Phone: Serum or plasma cholesterol in HDL measurement (mass/volume)on 11-25-2021 Cholesterol in HDL [Mass/Vol] 46 mg/dL [facility] Work Phone: Comment on above: The drugs N-Acetylcy steine and Metamizole may falsely depress this assay. Reference Range HDL <40 mg/dL Low HDL Cholesterol HDL >or= 60 mg/dL High HDL Cholesterol Serum or plasma cholesterol in VLDL measurement (mass/volume)on 11-25-2021 Cholesterol in VLDL [Mass/Vol] 9 mg/dL 5-40 [facility] Work Phone: [phone] Serum or plasma creatinine m easurement (mass/volume)on 11-25-2021 Creatinine [Mass/Vol] 0.84 mg/dL 0.70-1.30 [facility] Work Phone: Comment on above: The validity of the calculated GFR & GFRAA in patients over 70 years has not been determined. Clinical correlation is essential. Serum or plasma low density lipoprotein (LDL) cholesterol measurement (mass/volume)on 11-25-2021 Cholesterol in LDL [Mass/Vol] 79 mg/dL 0-130 [facility] Work Phone: Serum or plasma urea nitroge n measurement (mass/volume)on 11-25-2021 Urea nitrogen [Mass/Vol] 18 mg/dL 7-18 [facility] Work Phone: Thin prep Papanicolaou smear with manual screeningon 11-25-2021 Thin prep Papanicolaou smear with manual screening 27 U/L 15-37 [facility] Work Phone: Thin prep Papanicolaou smear with manual screening 3 5-15 [facility] Work Phone: CBC and Differentialon 07-01 Abs Baso 0.17 k/uL High <0.11 [facility] Comment on above: Performed By: #### C BCDIF, CMP, LIPA, MG1 ####[facility] [address] [place] [address] Abs Johnston 1.02 k/uL High <0.87 [facility] Comment on above: Performed By: #### C BCDIF, CMP, LIPA, MG1 ####[facility] [address] [place] [address] Abs Neut 7.42 k/uL Normal 1.45-7.50 [facility] Comment on above: Performed By: #### C BCDIF, CMP, LIPA, MG1 ####[facility] [address] [place], [place] [id number] Basophils/100 WBC Auto (Bld) 1.5 % Normal [facility] Comment on above: Performed By: #### C BCDIF, CMP, LIPA, MG1 ####[facility] [address] [place] [address] Eosinophils Auto #/vol (Bld) 0.31 10*3/uL Normal <0.46 [facility] Comment on above: Performed By: #### C BCDIF, CMP, LIPA, MG1 ####[facility] [address] [place] [address] Eosinophils/100 WBC Auto (Bld) 2.7 % Normal [facility] Comment on above: Performed By: #### C BCDIF, CMP, LIPA, MG1 ####[place] [address] Erythrocyte distribution width Auto Ratio (RBC) 12.8 % Normal 11.5-15.0 [facility] Comment on above: Performed By: #### C BCDIF, CMP, LIPA, MG1 ####[place] [address] Hematocrit Auto Volume Fraction (Bld) 44.9 % Normal 39.0-51.0 [facility] Comment on above: Performed By: #### C BCDIF, CMP, LIPA, MG1 ####[place] [address] Hemoglobin mass conc (Bld) 15.8 g/dL Normal 13.0-17.0 [facility] Comment on above: Performed By: #### C BCDIF, CMP, LIPA, MG1 ####[place] [address] Lymphocytes Auto #/vol (Bld) 2.53 10*3/uL Normal 1.00-4.00 [facility] Comment on above: Performed By: #### C BCDIF, CMP, LIPA, MG1 ####[place] [address] Lymphocytes/100 WBC Auto (Bld) 22.1 % Normal [facility] Comment on above: Performed By: #### C BCDIF, CMP, LIPA, MG1 ####[place] [address] MCH Auto Entitic mass (RBC) 30.4 pG Normal 26.0-34.0 [facility] Comment on above: Performed By: #### C BCDIF, CMP, LIPA, MG1 ####[place] [address] MCHC Auto mass conc (RBC) 35.2 g/dL Normal 30.5-36.0 [facility] Comment on above: Performed By: #### C BCDIF, CMP, LIPA, MG1 ####[facility] [address] [place] [address] MCV Auto Entitic volume (RBC) 86.3 fL Normal 80.0-100.0 [facility] Comment on above: Performed By: #### C BCDIF, CMP, LIPA, MG1 ####[facility] [address] [place] [address] Monocytes/100 WBC Auto (Bld) 8.9 % Normal [facility] Comment on above: Performed By: #### C BCDIF, CMP, LIPA, MG1 ####[facility] [address] [place] [address] Neutrophils/100 WBC Auto (Bld) 64.8 % Normal [facility] Comment on above: Performed By: #### C BCDIF, CMP, LIPA, MG1 ####[facility] [address] [place] [address] Platelet mean volume Auto Entitic volume (Bld) 10.9 fL Normal 9.0-12.7 [facility] Comment on above: Performed By: #### C BCDIF, CMP, LIPA, MG1 ####[facility] [address] [place] [address] Platelets Auto #/vol (Bld) 259 10*3/uL Normal 150-400 [facility] Comment on above: Performed By: #### C BCDIF, CMP, LIPA, MG1 ####[facility] [address] [place] [address] RBC Auto #/vol (Bld) 5.20 10*6/uL Normal 4.20-6.00 [facility] Comment on above: Performed By: #### C BCDIF, CMP, LIPA, MG1 ####[facility] [address] [place] [address] WBC Auto #/vol (Bld) 11.45 10*3/uL High 3.70-11.00 [facility] Comment on above: Performed By: #### C BCDIF, CMP, LIPA, MG1 ####[facility] [address] [place] [address] CT ABD/PEL WO IVCONon 2017 CT ABD/PEL WO IVCON * * *Final Report* * *DATE OF EXAM: Jun 30 2018 11:50PM [facility] [place] [facility]/PEL WO IVCON / REASON: Flank pain, stone disease suspected * * * * Physician Interpretation * * * * EXAMINATION: CT ABDOMEN AND PELVIS WITHOUT IV CONTRASTCLINICAL HISTORY: Right flank painTECHNIQUE: Non-IV contrast imaging of the abdomen and pelvis was performed using standard technique, scanning from just above the dome of the diaphragm to the symphysis pubis.MQ: [id number]:IV: NoneCT Radiation dose: Integrated Dose-length product (DLP) for this visit = 725 mGy*cm.CT Dose Reduction Employed: mAs-kVp adjusted based on patient size-ageCOMPARISON: NoneRESULT: Evaluation of the solid organs is markedly limited in the absence of intravenous contrast material. Evaluation of the bowel is markedly limited in the absence of oral and intravenous contrast material.Abdomen / Pelvis:Liver: Unenhanced liver grossly unremarkable. Smooth in contour.Biliary: Gallbladder present without evidence of wall thickening or radiopaque stones. No biliary ductal dilation.Spleen: No splenomegaly.Pancreas: Unenhanced pancreas grossly unremarkable.Adrenals: No mass.Kidneys: 4.4 mm obstructing right ureterovesical junction calculus present with secondary mild right hydroureteronephrosis and mild right perinephric stranding. No left urinary tract calculus identified. No left-sided hydronephrosis.GI Tract: No bowel dilation.Lymph Nodes: No suspect lymphadenopathy by imaging size criteria.Mesentery/perito neum: No ascites.Vasculature: Phleboliths present in the left pelvis.Pelvis: Bladder collapsed. Prostate and seminal vesicles grossly normal.Bones/Soft Tissues: Spondylolysis at the level of L5 without evidence of spondylolisthesis. Mild degenerative changes within the spine present.Lower thorax: 4 mm right middle lobe pulmonary nodule (series 2, image 25).IMPRESSION:1. Obstructing 4 mm right ureterovesical junction calculus with associated mild right hydroureteronephrosis.2. 4 mm right middle lobe pulmonary nodule.Incidental Finding: No follow-up imaging for this incidentally detected lung nodule is recommended. If there are risk factors for lung malignancy or if the nodule has suspicious features (eg spiculated or upper lobe location), a follow-up chest CT exam could be obtained in 12 months.Library Science Instructor: PSCB Transcribe Date/Time: Jun 30 2018 11:52PDictated by : SUKI MCNEILL MDThiephraim examination was interpreted and the report reviewed and electronically signed by: SUKI MCNEILL MD on Jul 01 2018 12:02AM [id number] Normal [facility] Comp Metabolic Panelon 07-01 Albumin mass conc 4.5 g/dL Normal 3.9-4.9 [facility] Comment on above: Performed By: #### C BCDIF, CMP, LIPA, MG1 ####[facility] [address] [place] [address] ALP enzyme act/vol 64 U/L Normal 38-113 [facility] Comment on above: Performed By: #### C BCDIF, CMP, LIPA, MG1 ####[facility] [address] [place] [address] ALT enzyme act/vol 65 U/L High 10-54 [facility] Comment on above: Performed By: #### C BCDIF, CMP, LIPA, MG1 ####[facility] [address] [place] [address] Anion gap 3 molar conc 16 mmol/L Normal 9-18 [facility] Comment on above: Performed By: #### C BCDIF, CMP, LIPA, MG1 ####[facility] [address] [place] [address] AST enzyme act/vol 39 U/L Normal 14-40 [facility] Comment on above: Performed By: #### C BCDIF, CMP, LIPA, MG1 ####[facility] [address] [place] [address] Bilirubin mass conc 0.5 mg/dL Normal 0.2-1.3 [facility] Comment on above: Performed By: #### C BCDIF, CMP, LIPA, MG1 ####[facility] [address] [place] [address] Calcium mass conc 9.8 mg/dL Normal 8.5-10.2 [facility] Comment on above: Performed By: #### C BCDIF, CMP, LIPA, MG1 ####[facility] [address] Chloride molar conc 97 mmol/L Normal 97-105 [facility] Comment on above: Performed By: #### C BCDIF, CMP, LIPA, MG1 ####[facility] [address]cvhf8117 [address] CO2 molar conc 20 mmol/L Low 22-30 [facility] Comment on above: Performed By: #### C BCDIF, CMP, LIPA, MG1 ####[facility] [address] Creatinine mass conc 1.02 mg/dL Normal 0.73-1.22 [facility] Comment on above: Performed By: #### C BCDIF, CMP, LIPA, MG1 ####[facility] [address] [place] [address] eGFR- Amer. >60 Normal [facility] Comment on above: Performed By: #### C BCDIF, CMP, LIPA, MG1 ####[facility] [address] GFR/1.73 sq M predicted among non-blacks MDRD vol rate/area (S/P/Bld) mL/min/{1.73_m2} Normal [facility] Comment on above: Result Comment: eGFR (Estimated GFR) Units of measure: mL/min/1.73 meters squaredeGFR is derived from the reexpressed MDRD Study equation using the following parameters: serum creatinine, age, gender and race. The creatinine assay has been calibrated to be traceable to IDMS.An eGFR <60 mL/min/1.73m2 for >3 months is consistent with chronic kidney disease. Refer to KDOQI guidelines for clinical interpretation.In patients with unstable renal function, e.g. those with acute kidney injury, the eGFR may not accurately reflect actual GFR. Performed By: #### C BCDIF, CMP, LIPA, MG1 ####[facility] E[address]wt[address]75 [address]721[address]5160 Glucose mass conc 245 mg/dL High 74-99 [facility] Comment on above: Result Comment: The [place] [employer] (ADA) provides guidance for cutoff values for fasting glucose and random glucose. The ADA defines fasting as no caloric intake for at least 8 hours. Fasting plasma glucose results between 100 to 125 mg/dL indicate increased risk for diabetes (prediabetes).Fasting plasma glucose results greater than or equal to 126 mg/dL meet the criteria for diagnosis of diabetes. In the absence of unequivocal hyperglycemia, results should be confirmed by repeat testing. In a patient with classic symptoms of hyperglycemia or hyperglycemic crisis, random plasma glucose results greater than or equal to 200 mg/dL meet the criteria for diagnosis of diabetes.Reference: Standards of Medical Care in Diabetes 2016, [place] [employer]. Diabetes Care. 2016.39(Suppl 1). Performed By: #### C BCDIF, CMP, LIPA, MG1 ####[facility] [address] [place] [address] Potassium molar conc 3.8 mmol/L Normal 3.7-5.1 [facility] Comment on above: Performed By: #### C BCDIF, CMP, LIPA, MG1 ####[facility] [address] [place] [address] Protein mass conc 7.3 g/dL Normal 6.3-8.0 [facility] Comment on above: Performed By: #### C BCDIF, CMP, LIPA, MG1 ####[facility] [address] [place] [address] Sodium molar conc 133 mmol/L Low 136-144 [facility] Comment on above: Performed By: #### C BCDIF, CMP, LIPA, MG1 ####[facility] [address] [place] [address] Urea nitrogen mass conc 16 mg/dL Normal 9-24 [facility] Comment on above: Performed By: #### C BCDIF, CMP, LIPA, MG1 ####[facility] [address] [place] [address] ED NOTEon 07-01-2018 ED NOTE HNO ID: [id number] Author: Katarina (Rn) RADHIKA Dodson Service: (none) Author Type: Registered Nurse Type: ED Notes Filed: 07/01/2018 1:54 AM Note Text: pt states he feels ok to go home. pt advised when to come back. Normal [facility] ED NOTE HNO ID: [id number] Author: Katarina FrancisRn) RADHIKA Dodson Service: (none) Author Type: Registered Nurse Type: ED Notes Filed: 07/01/2018 1:04 AM Note Text: pt given d/c instructions and follow up care he verbalized understanding., awaiting fluids to finish. [facility] ED NOTE HNO ID: [id number] Author: Katarina FrancisRn) RADHIKA Dodson Service: (none) Author Type: Registered Nurse Type: ED Notes Filed: 07/01/2018 12:25 AM Note Text: waiting IV fluids. before d/c [facility] ED NOTE HNO ID: [id number] Author: Katarina FrancisRn) RADHIKA Dodson Service: (none) Author Type: Registered Nurse Type: ED Notes Filed: 06/30/2018 11:48 PM Note Text: Patient returned to the Emergency Department. [facility] ED NOTE HNO ID: [id number] Author: Katarina FrancisRn) RADHIKA Dodson Service: (none) Author Type: Registered Nurse Type: ED Notes Filed: 06/30/2018 11:44 PM Note Text: Patient transported to ca with Tech. [facility] ED NOTE HNO ID: [id number] Author: Kasie FrancisRnGladis Corbin RN Service: (none) Author Type: Registered Nurse Type: ED Notes Filed: 06/30/2018 10:47 PM Note Text: Right flank pain has started 2 hrs prior to arrival in [facility] er Pt has had 1 emesis [facility] ED PROV NOTEon 07-01-2018 Protein mass conc HNO ID: [id number] thor: [address] [place]) Glenna: (none)Author Type: Physician AssistantType: ED Provider NotesFiled: 07/01/2018 12:30 AMNote Text:ED Provider NotePatient Name: Purvi Infante AmadeoN: [id number] DATE: 06/30/18HistoryPatient presents with:Flank PainVomitin [id number] male presents emergency Department with complaints ofright-sided flank pain for the past 2 hours as progressively beenescalating. States she's felt nauseous and when he first arrived in theER had vomited once. Denies any history of pain like this. Denies anyfever or chills. Denies any urinary symptoms. Denies any left-sidedpain. States he has some discomfort in the groin but denies anytesticular pain. Denies any other complaints at this time.History provided by: PatientLanguage convolute tube winder used: NoPAST MEDICAL HISTORYDiagnosis Date- Diabetes (HCC)- HypertensionPAST SURGICAL HISTORYProcedure Laterality Date- ORTHOPEDICS SURGERY HX right shoulder scopeNo family history on file.Social HistorySocial History Main Topics- Smoking status: Never Smoker- Smokeless tobacco: Former User- Alcohol use No- Drug use: Yes Types: Marijuana Comment: last used 1 week ago- Sexual activity: Yes Partners: FemaleALLERGIESNo Known AllergiesReview of SystemsConstitutional: Negative. Negative for chills, fatigue and fever.HENT: Negative.Respiratory: Negative. Negative for cough, shortness of breath andwheezing.Cardiovascula r: Negative. Negative for chest pain.Gastrointestinal: Positive for nausea and vomiting. Negative for abdominalpain, constipation and diarrhea.Genitourinary: Positive for flank pain. Negative for dysuria, frequency,hematuria and testicular pain.Musculoskeletal: Negative for back pain and neck pain.Skin: Negative. Negative for rash and wound.Neurological: Negative. Negative for dizziness, light-headedness andheadaches.Psychiatric/ Behavioral: Negative.Physical ExamBP 148/82 Pulse 77 Temp (Src) 98.4 (Oral) Resp 18 Ht 5' 6 (1.68m) Wt 205 lb (93.0kg) SpO2 98% BMI 33.10 kg/(m2).Physical ExamConstitutional: He is oriented to person, place, and time. He appearswell-developed and well-nourished. No distress.HENT:Head: Atraumatic.Nose: Nose normal.Eyes: Pupils are equal, round, and reactive to light. EOM are normal.Neck: Normal range of motion.Cardiovascular: Normal rate, regular rhythm and normal heart sounds.Pulmonary/Chest: Effort normal and breath sounds normal. No respiratorydistress. He has no wheezes.Abdominal: Normal appearance. There is no tenderness. There is CVAtenderness.Right-sided CVA tenderness. Symptoms improved significantly after painmedication and Toradol.Musculoskeletal: Normal range of motion.Neurological: He is alert and oriented to person, place, and time. Nocranial nerve deficit. Coordination normal.Skin: Skin is warm. Capillary refill takes less than 2 seconds. Noerythema.Psychiatric: He has a normal mood and affect. His behavior is normal.Judgment and thought content normal.Nursing note and vitals reviewed.Diagnostic TestingED Labs Ordered and ReviewedCOMP METABOLIC PANEL - Abnormal; Notable for the following: Result Value Ref Range Glucose 245 (*) 74 - 99 mg/dL Sodium 133 (*) 136 - 144 mmol/L CO2 20 (*) 22 - 30 mmol/L ALT 65 (*) 10 - 54 U/L All other components within normal limitsCBC + DIFF - Abnormal; Notable for the following: WBC 11.45 (*) 3.70 - 11.00 k/uL Abs Johnston 1.02 (*) <0.87 k/uL Abs Baso 0.17 (*) <0.11 k/uL All other components within normal limitsURINALYSIS - Abnormal; Notable for the following: Glucose, Urine 250 (*) Negative mg/dL Ketones, Urine >=80 (*) Negative Specific [place], Ur >1.029 (*) 1.001 - 1.029 Hemoglobin/Blood,Ur Small (*) Negative Protein, Urine 30 (*) Negative mg/dL All other components within normal limitsURINE MICROSCOPIC - Abnormal; Notable for the following: Bacteria Few (*) 0 /HPF All other components within normal limitsMAGNESIUM BLDLIPASE BLDURINE CULTURECT ABD/PEL WO IVCON Final Result IMPRESSION: 1. Obstructing 4 mm right ureterovesical junction calculus with associated mild right hydroureteronephrosis. 2. 4 mm right middle lobe pulmonary nodule. Incidental Finding: No follow-up imaging for this incidentally detected lung nodule is recommended. If there are risk factors for lungmalignancy or if the nodule has suspicious features (eg spiculated or upper lobe location), a follow-up chest CT exam could be obtained in 12 months. Library Science Instructor: ELY Transcribe Date/Time: Jun 30 2018 11:52P Dictated by : SUKI MCNEILL MD This examination was interpreted and the report reviewed and electronically signed by: SUKI MCNEILL MD on Jul 01 2018 12:02AM ESTProceduresED Course / Clinical ImpressionClinical Impressions as of Jul 01 27Right kidney stoneMDM / Disposition / PlanMDMClinically and hemodynamically stable at time of discharge. Patient andpatient's family felt comfortable with discharge plan and willing toattempt outpatient treatment. At this time patient discomfort hasimproved significantly with medications given here. When he first arrivedtoes concerned he may need to the admitted for pain control but his painis controlled at this time. His nausea/vomiting has ceased. Advisedfollow-up with urology and to return here immediately if symptoms changeor worsen or do not improve or tolerate outpatient treatment.The patient was DISCHARGED: Counseled patient regarding lab results ANDradiology results AND suspected diagnosis AND need for follow-up. Dischargedhome with verbal and written instructions. They were instructed to returnas needed for persistent or worsening symptoms or any new concerns.Condition at time of disposition: stableSIGNATURE: Yaakov Youngblood (Gaye Rhodes07/01/18 0030 Normal [facility] Lipaseon 07-01-2018 Lipase enzyme act/vol 20 U/L Normal [facility] Comment on above: Performed By: #### C BCDIF, CMP, LIPA, MG1 ####[facility] [address] [place] [address] Magnesiumon 07-01-2018 Magnesium mass conc 1.8 mg/dL Normal 1.7-2.3 [facility] Comment on above: Performed By: #### C BCDIF, CMP, LIPA, MG1 ####[facility] [address] [place] [address] Urinalysison 07-01-2018 Bilirubin, Urine Negative Normal Negative [facility] Comment on above: Performed By: #### U A, UAMIC ####[facility] [address] [place] [address] Clarity Clear Normal Clear [facility] Comment on above: Performed By: #### U A, UAMIC ####[facility] [address] [place] [address] Color Yellow Normal Yellow [facility] Comment on above: Performed By: #### U A, UAMIC ####[facility] [address] [place] [address] Glucose Ql (U) 250 mg/dL Critically abnormal Negative [facility] Comment on above: Performed By: #### U A, UAMIC ####[facility] [address] [place] [address] Hemoglobin/Blood,U r Small Critically abnormal Negative [facility] Comment on above: Performed By: #### U A, UAMIC ####[facility] [address] [place] [address] Ketones Ql (U) >=80 Critically abnormal Negative [facility] Comment on above: Performed By: #### U A, UAMIC ####[facility] [address] [place] [address] Leukest Negative Normal Negative [facility] Comment on above: Performed By: #### U A, UAMIC ####[facility] [address] [place] [address] Nitrites Negative Normal Negative [facility] Comment on above: Performed By: #### U A, UAMIC ####[place] [address] pH 6.0 Normal 5.0-8.0 [facility] Comment on above: Performed By: #### U A, UAMIC ####[facility] [address] [place] [address] Protein, Urine 30 mg/dL Critically abnormal Negative [facility] Comment on above: Performed By: #### U A, UAMIC ####[place] [address] Specific [place], Ur >1.029 High 1.001-1.029 [facility] Comment on above: Performed By: #### U A, UAMIC ####[place] [address] Urobilinogen 0.2 Normal 0.2-1.0 [facility] Comment on above: Performed By: #### U A, UAMIC ####[place] [address] Urine Cultureon 07-01-2018 Bacteria identified Cx Nom (U) Sp. Request/Comment: - Specimen received in preservative Culture Result - No growth (<1,000 CFU/ml) [facility] Comment on above: Performed By: #### C BCDIF, CMP, LIPA, MG1 ####[facility] [address]rhn[address] Urine Microscopic (FOR LAB U SE ONLY)on 07-01-2018 Bacteria Few Critically abnormal 0 [facility] Comment on above: Performed By: #### U A, UAMIC ####[facility] Ikswtbdyha1582 [address] Cast SEE COMMENT Normal 0 [facility] Comment on above: Result Comment: 0 Performed By: #### U A, UAMIC ####[facility] [address] [place] [address] Epithelial Cells SEE COMMENT Normal [facility] Comment on above: Result Comment: 0-5S quamous Epithelial Cells Performed By: #### U A, UAMIC ####[facility] [address] [place] [address] INR Coag RelTime (Bld) 0-3 Normal 0-3 [facility] Comment on above: Performed By: #### U A, UAMIC ####[facility] [address] [place] [address] WBC 0-5 Normal 0-5 [facility] Comment on above: Performed By: #### U A, UAMIC ####[facility] [address] [place], [place] [id number] ZEENATOVjadon 10-27-2017 CNOV Office Visit (UCTR) PURVI VIZCAINO ([id number]) 1980 MDate Time Provider Department10/27/17 11:15 AM МАРИНА RENEE GURDEEP During your visit today, we recorded the following information about you: Temperature Pulse Respiration Blood pressure 98.5 degrees 76/minute 14/minute 114/80 Weight 95.3 kgМарина Renee APRN.CNP 10/27/2017 11:49 AM SignedSubjectiveHPIPt presents with c/o nausea and loose stools x 3 days.Denies vomiting, abdominal pain, UTI sx, fever, chills.Appetite is normal.States nausea occurs in am so he has had to call off work.Nausea then improves.Had several episodes of loose stool but that has resolved. had vomiting and diarrhea x one day then her sx fully resolved.Requests note for workReview of SystemsConstitutional: Negative for chills and fever.Gastrointestinal: Positive for diarrhea and nausea. Negative for abdominalpain, blood in stool, constipation, heartburn, melena and vomiting.Genitourinary: Negative.ObjectivePhysica l ExamConstitutional: He is oriented to person, place, and time and well-developed,well-niles shed, and in no distress. No distress.Cardiovascular: Normal rate, regular rhythm and normal heart sounds. Examreveals no gallop and no friction rub.No murmur heard.Pulmonary/Chest: Effort normal and breath sounds normal. No respiratorydistress. He has no wheezes. He has no rales.Abdominal: Soft. Normal appearance and bowel sounds are normal. There is notenderness. There is no rebound and no CVA tenderness.Neurological: He is alert and oriented to person, place, and time.Skin: Skin is warm and dry. He is not diaphoretic.BP 114/80 Pulse 76 Temp 36.9 ?C (98.5 ?F) (Tympanic) Resp 14 Wt 95.3 kg(210 lb).Patient presents with:Diarrhea: with fatigue and nauseaNo past medical history on file.No past surgical history on file.ALLERGIES Review of patient's allergies indicates no known allergies.MEDICATIONSinsu familia glargine,hum.rec.anlog (LANTUS SUBCUTANEOUS) Inject subcutaneously.insulin lispro (HUMALOG KWIKPEN INSULIN SUBCUTANEOUS) Inject subcutaneously.HYDROCHLOR OTHIAZIDE ORAL Take by mouth.ondansetron orally disintegrating (ZOFRAN ODT) 4 mg disintegrating tablet Take1 tablet by mouth every 8 hours as needed for Nausea/Vomiting for up to 10doses.Lactobacillus acidophilus (FLORAJEN) 460 mg (20 billion cell) cap Take 1capsule by mouth once daily.No family history on file.Social HistorySubstance Use Topics- Smoking status: Never Smoker- Smokeless tobacco: Former User- Alcohol use Not on fileASSESSMENT/PLAN:1. Nausea - ICD9: 787.02, ICD10: R11.0 (primary diagnosis)- ONDANSETRON 4 MG DISINTEGRATING TABLET2. Diarrhea, unspecified type - ICD9: 787.91, ICD10: R19.7- LACTOBACILLUS ACIDOPHILUS 460 MG (20 BILLION CELL) CAPSULEThe patient is instructed to return or seek emergency treatment if symptomsbecome worse or with any acute change in condition.The patient verbalizes understanding and is in agreement with plan of care.Марина Renee, CNPReferring Provider: SELF [200]Allergies As of Date: 10/27/2017(No Known Allergies)Date Reviewed: 10/27/2017Reviewed by: Flores Allen LPN - Fully AssessedReason for Visit: Diarrhea [35] Cmt: with fatigue and nauseaPrimary Visit Diagnosis:Nausea [R11.0] Other Visit Diagnosis:Diarrhea, unspecified type [R19.7]Order(s):ondansetr on orally disintegrating (ZOFRAN ODT) 4 mg disintegrating tabletTake 1 tablet by mouth every 8 hours as needed for Nausea/Vomiting for up to 10 doses.Disp: 10 tabletRfl: 0 Lactobacillus acidophilus (FLORAJEN) 460 mg (20 billion cell) capTake 1 capsule by mouth once daily.Disp: 30 capsuleRfl: 0Prescriptions as of 10/27/2017 Sig: LANTUS SUBCUTANEOUS Inject subcutaneously. HUMALOG KWIKPEN INSULIN SUBCU* Inject subcutaneously. HYDROCHLOROTHIAZIDE ORAL Take by mouth. ONDANSETRON 4 MG DISINTEGRATI* Take 1 tablet by mouth every * LACTOBACILLUS ACIDOPHILUS 460* Take 1 capsule by mouth once *Problem List As Of Date: 10/27/2017(None)Prescript ions ordered this encounter Disp Refills Start End ONDANSETRON 4 MG DISINTEGRATING TABL* 10 t* 0 10/27/2017 Route: ORAL Sig: Take 1 tablet by mouth every 8 hours as needed for Nausea/Vomiting for up to 10 doses. LACTOBACILLUS ACIDOPHILUS 460 MG (20* 30 c* 0 10/27/2017 Route: ORAL Sig: Take 1 capsule by mouth once daily.Letter TextWoosterDepartment of Urgent CareThelma Parish, [address] [place], [place] [address]Txdke: [phone] WHOM IT MAY CONCERN:This is to confirm that [facility]ain[facility] had an [facility] by Thelma Parish PA on 10/27/2017.Sincerely yours,Thelma Parish PAEncounter Number: [id number] Status:Closed by МАРИНА RENEE CASE LOADER OPERATOR on 10/27/17 Normal [facility] PROGRESSon 10-27-2017 PROGRESS HNO ID: [id number] thor: Марина ReneeService: (none)Author Type: Nurse PractitionerType: Progress NotesFiled: 10/27/2017 11:49 AMNote Text:SubjectiveHPIPt presents with c/o nausea and loose stools x 3 days.Denies vomiting, abdominal pain, UTI sx, fever, chills.Appetite is normal.States nausea occurs in am so he has had to call off work.Nausea then improves.Had several episodes of loose stool but that has resolved. had vomiting and diarrhea x one day then her sx fully resolved.Requests note for workReview of SystemsConstitutional: Negative for chills and fever.Gastrointestinal: Positive for diarrhea and nausea. Negative for abdominalpain, blood in stool, constipation, heartburn, melena and vomiting.Genitourinary: Negative.ObjectivePhysica l ExamConstitutional: He is oriented to person, place, and time andwell-developed, well-nourished, and in no distress. No distress.Cardiovascular: Normal rate, regular rhythm and normal heart sounds. Examreveals no gallop and no friction rub.No murmur heard.Pulmonary/Chest: Effort normal and breath sounds normal. No respiratorydistress. He has no wheezes. He has no rales.Abdominal: Soft. Normal appearance and bowel sounds are normal. There isno tenderness. There is no rebound and no CVA tenderness.Neurological: He is alert and oriented to person, place, and time.Skin: Skin is warm and dry. He is not diaphoretic.BP 114/80 Pulse 76 Temp 36.9 ?C (98.5 ?F) (Tympanic) Resp 14 Wt95.3 kg (210 lb).Patient presents with:Diarrhea: with fatigue and nauseaNo past medical history on file.No past surgical history on file.ALLERGIES Review of patient's allergies indicates no known allergies.MEDICATIONSinsu familia glargine,hum.rec.anlog (LANTUS SUBCUTANEOUS) Injectsubcutaneously.insu familia lispro (HUMALOG KWIKPEN INSULIN SUBCUTANEOUS) Injectsubcutaneously.HYDR OCHLOROTHIAZIDE ORAL Take by mouth.ondansetron orally disintegrating (ZOFRAN ODT) 4 mg disintegrating tabletTake 1 tablet by mouth every 8 hours as needed for Nausea/Vomiting for upto 10 doses.Lactobacillus acidophilus (FLORAJEN) 460 mg (20 billion cell) cap Take 1capsule by mouth once daily.No family history on file.Social HistorySubstance Use Topics- Smoking status: Never Smoker- Smokeless tobacco: Former User- Alcohol use Not on fileASSESSMENT/PLAN:1. Nausea - ICD9: 787.02, ICD10: R11.0 (primary diagnosis)- ONDANSETRON 4 MG DISINTEGRATING TABLET2. Diarrhea, unspecified type - ICD9: 787.91, ICD10: R19.7- LACTOBACILLUS ACIDOPHILUS 460 MG (20 BILLION CELL) CAPSULEThe patient is instructed to return or seek emergency treatment ifsymptoms become worse or with any acute change in condition.The patient verbalizes understanding and is in agreement with plan ofcare.Марина Renee CNP Normal [facility] Vital Signs Date Time Vital Sign Value Performing Clinician Faci sebasy 08-31-2023 12:49-0500 Body height 167.6 cm Nito Meehan MD Work Phone: [facility] 08-31-2023 12:49-0500 Body weight 97.52 kg Nito Meehan MD Work Phone: [facility] 08-31-2023 12:49-0500 Diastolic blood pressure 81 mm[Hg] Nito Meehan MD Work Phone: [facility] 08-31-2023 12:49-0500 Heart rate 91 /min Nito Meehan MD Work Phone: [facility] 08-31-2023 12:49-0500 SaO2% (BldA) [Mass fraction] 99 % Nito Meehan MD Work Phone: [facility] 08-31-2023 12:49-0500 Systolic blood pressure 145 mm[Hg] Nito Meehan MD Work Phone: [facility] 11-25-2021 08:15-0400 Body height 165.[address] Chong Lopez Work Phone: [facility] Work Phone: 11-25-2021 08:15-0400 Body mass index (BMI) [Ratio] 39.1 kg/m2 Dr. Chong Lopez Work Phone: [facility] Work Phone: 11-25-2021 08:15-0400 Body temperature 96.3 [degF] Dr. Chong Lopez Work Phone: [facility] Work Phone: 11-25-2021 08:15-0400 Body weight 106.[address] Chong Lopez Work Phone: [facility] Work Phone: 11-25-2021 08:15-0400 Diastolic blood pressure 90 mm[Hg] Dr. Chong Lopez Work Phone: [facility] Work Phone: 11-25-2021 08:15-0400 Heart rate 74 /min Dr. Chong Lopez Work Phone: [facility] Work Phone: 11-25-2021 08:15-0400 Respiratory rate 18 /min Dr. Chong oLpez Work Phone: [facility] Work Phone: 11-25-2021 08:15-0400 SaO2% (BldA) [Mass fraction] 100 % Dr. Chong Lopez Work Phone: [facility] Work Phone: 11-25-2021 08:15-0400 Systolic blood pressure 136 mm[Hg] Dr. Chong Lopez Work Phone: [facility] Work Phone: Encounters Encounter Date Encounter Type Care Provider Facility Start: 07-16-2024 End: 07-16-2024 ambulatory Aurora Angelo Facility:[facility] Start: 02-06-2024 End: 02-06-2024 ambulatory Aurora Angelo Facility:[facility] Start: 09-12-2023 End: 09-12-2023 ambulatory Chong Lopez Facility:[facility] Start: 08-31-2023 End: 08-31-2023 ambulatory NITO MEEHAN Facility:[facility] Start: 08-31-2023 End: 08-31-2023 Patient encounter procedure Nito Meehan MD Work Phone: Neurosurgery Comment on above: Cervical spondylosis without myelopathy (Primary Dx) Start: 05-20-2022 End: 05-20-2022 ambulatory [facility] Start: 11-25-2021 End: 11-25-[address] Chong Lopez Work Phone: [facility] Start: 07-01-2018 End: 07-01-2018 Emergency department patient visit [facility] Start: 10-27-2017 End: 10-28-2017 Ambulatory [facility] Plan of Treatment Date Care Activity Detail Author Start: 07-11-2023 Depression Assessment Depression Ass essment [facility] Start: 03-11-2023 Covid-19 Vaccine ( season) Covid-19 Vaccine ( season) [facility] Start: 03-11-2023 Influenza vaccination Influenza Vacc ine (#1) [facility] Start: 10-23-2015 Lipid panel Lipid Screening [facility] Start: 10-23-1999 Urine microalbumin profile DTa P,Tdap,Td Vaccine (1 - Tdap) [facility] Start: 1998 Hepatitis C screening Hepatitis C [facility] Start: 1998 HIV screening HIV Screening [facility] Start: 1980 Hepatitis B Vaccine (1 of 3 - 3-dose series) Hepatitis B Vaccine (1 of 3 - 3-dose series) [facility] Immunizations Immunization Date Immunization Notes Care Provider Nahomi russell 12-13-2020 Covid (Pfizer) Dr. Chong Lopez Work Phone: [facility] Work Phone: 05-28-2019 influenza virus vaccine, unspecified formulation Nito Meehan MD Work Phone: [facility] Payers Date Payer Category Payer Unknown [id number] 2023 Self-pay [id number] 2022 Unknown [id number] 2022 Unknown [employer] PPO [id number] 2022-Present [phone] [id number] [place] [address] PPO [id number] Private Health Insurance [facility] [id number] Unknown [facility] [id number] Unknown [id number] Unknown [id number] Unknown 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 Author Type: Physician Type: Progress Notes Filed: 09/12/2023 07:51 Note Text: SPINE SURGERY NEW PATIENT This is an in-person visit. PCP: Ben Fung MD REFERRING PROVIDER: Not indicated SUBJECTIVE HISTORY OF PRESENT ILLNESS: Purvi Vizcaino is a 42 year old male presenting alone. The patient reports pain in his neck that started about 9 years ago. When he sits on the couch and watch TV, work, and use his phone his pain is bad. 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 When lying flat or stretching, the pain is better. He has not taken anything for the pain. He denies getting any injections. Pain occurs the most at the end of the day. CHIEF COMPLAINT: Neck pain PRECIPITATING EVENT: Work-related DURATION OF SYMPTOMS: Greater Than 1 Year PAIN EVALUATION 08/31/2023 1248 Pain Level: 2 Pain Location: Neck Description: Dull;Aching Frequency: Intermittent Pain Radiation: Neck pain may radiate to the shoulders Aggravating Factors: Working, watching TV, or using phone Alleviating Factors: Lying supine, Stretching Pain Ratio: 2/10 DERMATOMAL DISTRIBUTION: Not applicable AMBULATORY STATUS: Independent Community Distances ANTIPLATELET OR ANTICOAGULATION STATUS: No PREVIOUS CONSERVATIVE TREATMENTS: None PREVIOUS SPINAL SURGERY: None There is no problem list on file for this patient. PAST MEDICAL HISTORY Diagnosis Date Diabetes (HCC) Hypertension PAST SURGICAL HISTORY Procedure Laterality Date ORTHOPEDICS SURGERY HX right shoulder scope No family history on file. Social History Tobacco Use Smoking status: Never Smokeless tobacco: Former Substance Use Topics Alcohol use: No Drug use: Yes Types: Marijuana Comment: last used 1 week ago ALLERGIES No Known Allergies MEDICATIONS: ketorolac (TORADOL) 10 mg tablet Take 1 tablet by mouth every 6 hours as needed. ondansetron orally disintegrating (ZOFRAN ODT) 4 mg disintegrating tablet Take 1 tablet by mouth every 6 hours. insulin glargine,hum.rec.anlog (LANTUS SUBCUTANEOUS) Inject subcutaneously. insulin lispro (HUMALOG KWIKPEN INSULIN SUBCUTANEOUS) Inject subcutaneously. HYDROCHLOROTHIAZIDE ORAL Take by mouth. Lactobacillus acidophilus (FLORAJEN) 460 mg (20 billion cell) cap Take 1 capsule by mouth once daily. methocarbamol (ROBAXIN-750) 750 mg tablet Take 1 tablet by mouth three times a day as needed. tamsulosin ER (FLOMAX) 0.4 mg cap Take 1 capsule by mouth daily at bedtime for 7 days. REVIEW OF SYSTEMS: PAIN ASSESSMENT: See HPI. GENERAL: Denies fever, chills malaise and weight loss. HEENT: No recent change in vision or hearing. CARDIOVASCULAR: Denies chest pain, history of A-fib, valvular disease, or pacemaker/ICD. RESPIRATORY: Denies SOB, sputum production, and hemoptysis. GI: Denies GI ulcers, inflammatory disease, or liver disease. : Denies change in frequency or urgency, kidney disease, and burning with urination. MUSCULOSKELETAL: Negative for joint pain or swelling, back pain or muscle pain. SKIN: Denies rash or itching. PSYCHOLOGICAL: Denies uncontrolled depression or anxiety. NEURO: Denies CVA, seizures, headaches. ENDOCRINE: Denies diabetes, thyroid disease. HEMATOLOGY/LYMPHOLOGY: Denies cancer, bleeding or clotting disorders, anemia,and DVT's. ALLERGIC/IMMUNOLOGICAL: Denies risks for infection, or recent MRSA infections. Patient Entered Questionnaires PROMIS Score Percentiles Percentiles provide an indication of how the patient's score ranks in relation to the general population. Higher percentile rankings indicate better function/quality of life. 50th percentile is the average of the general population and indicates half of respondents had a worse score. Depression Screening: PHQ-9 Self-Harm (Item 9) response options: 0 Not at all 1 Several days 2 More than half the days 3 Nearly every day PHQ-9 Levels: 0-4 No to mild depression 5-9 Mild depression 10-14 Moderate depression 15-19 Moderately severe depression 20-27 Severe depression OBJECTIVE: PHYSICAL EXAM BP 145/81 Pulse 91 Ht 167.6 cm (5' 6) Wt 97.5 kg (215 lb) SpO2 99% BMI 34.70 kg/m? Oriented x3 PERRL FS Motor: UE D 5/5, B 5/5, T 5/5, G 5/5, HI 5/5 LE HF 5/5, KE 5/5, DF 5/5, PF 5/5, EHL 5/5 Reflexes 2+ Naranjo negative NEURO TESTS: None DATA REVIEW MRI Cervical spine shows mild disc bulge possible herniation at C5-6 predominantly on the right side with no cord compression and mild to moderate foraminal stenosis on the right. ASSESSMENT/PLAN (M47.812) Cervical spondylosis without myelopathy (primary encounter diagnosis) Purvi Vizcaino will continue with medical management of his/her condition. 1. Recommended patient to avoid bending and alternate between sitting and standing while at work. Recommended patient to stretch in the morning. Patient should start Robax (more content not included)... [facility] History of Present illness Narrative 08-31-2023 Nito Meehan MD - 08/31/2023 12:46 PM EST Note Date & Type Note Facility 08-31-2023 History of Presen t illness Narrative SPINE SURGERY NEW PATIENT This is an in-person visit. PCP: Ben Fung MD REFERRING PROVIDER: Not indicated SUBJECTIVE HISTORY OF PRESENT ILLNESS: Purvi Vizcaino is a 42 year old male presenting alone. The patient reports pain in his neck that started about 9 years ago. When he sits on the couch and watch TV, work, and use his phone his pain is bad. 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 When lying flat or stretching, the pain is better. He has not taken anything for the pain. He denies getting any injections. Pain occurs the most at the end of the day. CHIEF COMPLAINT: Neck pain PRECIPITATING EVENT: Work-related DURATION OF SYMPTOMS: Greater Than 1 Year PAIN EVALUATION 08/31/2023 1248 Pain Level: 2 Pain Location: Neck Description: Dull;Aching Frequency: Intermittent Pain Radiation: Neck pain may radiate to the shoulders Aggravating Factors: Working, watching TV, or using phone Alleviating Factors: Lying supine, Stretching Pain Ratio: 2/10 DERMATOMAL DISTRIBUTION: Not applicable AMBULATORY STATUS: Independent Community Distances ANTIPLATELET OR ANTICOAGULATION STATUS: No PREVIOUS CONSERVATIVE TREATMENTS: None PREVIOUS SPINAL SURGERY: None There is no problem list on file for this patient. PAST MEDICAL HISTORY Diagnosis Date Diabetes (HCC) Hypertension PAST SURGICAL HISTORY Procedure Laterality Date ORTHOPEDICS SURGERY HX right shoulder scope No family history on file. Social History Tobacco Use Smoking status: Never Smokeless tobacco: Former Substance Use Topics Alcohol use: No Drug use: Yes Types: Marijuana Comment: last used 1 week ago ALLERGIES No Known Allergies MEDICATIONS: ketorolac (TORADOL) 10 mg tablet Take 1 tablet by mouth every 6 hours as needed. ondansetron orally disintegrating (ZOFRAN ODT) 4 mg disintegrating tablet Take 1 tablet by mouth every 6 hours. insulin glargine,hum.rec.anlog (LANTUS SUBCUTANEOUS) Inject subcutaneously. insulin lispro (HUMALOG KWIKPEN INSULIN SUBCUTANEOUS) Inject subcutaneously. HYDROCHLOROTHIAZIDE ORAL Take by mouth. Lactobacillus acidophilus (FLORAJEN) 460 mg (20 billion cell) cap Take 1 capsule by mouth once daily. methocarbamol (ROBAXIN-750) 750 mg tablet Take 1 tablet by mouth three times a day as needed. tamsulosin ER (FLOMAX) 0.4 mg cap Take 1 capsule by mouth daily at bedtime for 7 days. REVIEW OF SYSTEMS: PAIN ASSESSMENT: See HPI. GENERAL: Denies fever, chills malaise and weight loss. HEENT: No recent change in vision or hearing. CARDIOVASCULAR: Denies chest pain, history of A-fib, valvular disease, or pacemaker/ICD. RESPIRATORY: Denies SOB, sputum production, and hemoptysis. GI: Denies GI ulcers, inflammatory disease, or liver disease. : Denies change in frequency or urgency, kidney disease, and burning with urination. MUSCULOSKELETAL: Negative for joint pain or swelling, back pain or muscle pain. SKIN: Denies rash or itching. PSYCHOLOGICAL: Denies uncontrolled depression or anxiety. NEURO: Denies CVA, seizures, headaches. ENDOCRINE: Denies diabetes, thyroid disease. HEMATOLOGY/LYMPHOLOGY: Denies cancer, bleeding or clotting disorders, anemia,and DVT's. ALLERGIC/IMMUNOLOGICAL: Denies risks for infection, or recent MRSA infections. Patient Entered Questionnaires PROMIS Score Percentiles Percentiles provide an indication of how the patient's score ranks in relation to the general population. Higher percentile rankings indicate better function/quality of life. 50th percentile is the average of the general population and indicates half of respondents had a worse score. Depression Screening: PHQ-9 Self-Harm (Item 9) response options: 0 Not at all 1 Several days 2 More than half the days 3 Nearly every day PHQ-9 Levels: 0-4 No to mild depression 5-9 Mild depression 10-14 Moderate depression 15-19 Moderately severe depression 20-27 Severe depression OBJECTIVE: PHYSICAL EXAM BP 145/81 Pulse 91 Ht 167.6 cm (5' 6) Wt 97.5 kg (215 lb) SpO2 99% BMI 34.70 kg/m Oriented x3 PERRL FS Motor: UE D 5/5, B 5/5, T 5/5, G 5/5, HI 5/5 LE HF 5/5, KE 5/5, DF 5/5, PF 5/5, EHL 5/5 Reflexes 2+ Naranjo negative NEURO TESTS: None DATA REVIEW MRI Cervical spine shows mild disc bulge possible herniation at C5-6 predominantly on the right side with no cord compression and mild to moderate foraminal stenosis on the right. ASSESSMENT/PLAN (M47.812) Cervical spondylosis without myelopathy (primary encounter diagnosis) Purvi Vizcaino will continue with medical management of his/her condition. 1. Recommended patient to avoid bending and alternate between sitting and standing while at work. Recommended patient to stretch in the morning. Patient should start Robaxin 750 mg up to 3 times daily as needed. Recommended patient to complete massage therapy. 2. Follow up: [facility] Ordered: None SIGNATURE: Nito Meehan MD PATIENT NAME: Purvi Vizcaino DATE: August 31, 2023 TIME: 12:46 PM PAGER: Scribed for Nito Meehan MD, by devon Yu scribe, August 31, 2023 documented in this encounter [facility] Evaluation note Note Date & Type Note Facility Evaluation note Diagnosis Onset Date Depression chronic Hypertension chronic Obesity (BMI 30-39.9) chroni c Type 1 diabetes mellitus chr onic Canal [facility] Work Phone: Evaluation note Note Date & Type Note Facility Evaluation note Diagnosis Cervical spondylosis without myelopathy- Primary documented in this encounter [facility] Summary Purpose Family History No Family History Records Found Relationship Condition Age at Onset Recorded Date/T perez mother Arthritis Unknown Malignant neoplasm Unknown father Arthritis Unknown Hypertension Unknown Hyperlipidemia Unknown brother Diabetes mellitus Unknown Kidney disorder Unknown Advance Directives No Advanced Directives Records FoundNo Advanced Directives Records FoundNo Advanced Directives Records FoundNo Advanced Directives Records FoundNo Advanced Directives Records Found Chief Complaint and Reason for Visit Chief Complaint 4 M FU Reason for Visit Depression Hypertension Obesity (BMI 30-39.9) Type 1 diabetes mellitus Additional Source Comments (unrecognized sect ion and content) No Status Records FoundNo Status Records FoundNo Status Records FoundNo Status Records FoundNo Status Records Found INFORMATION SOURCE (unrecogn ized section and content) DATE CREATED AUTHOR 12/29/2017 [facility] DATE CREATED AUTHOR AUTHOR'S ORGANIZ ATION 07/04/2018 [facility] DATE CREATED AUTHOR AUTHOR'S ORGANIZ ATION 09/15/2022 [facility] DATE CREATED AUTHOR AUTHOR'S ORGANIZ ATION 09/12/2023 [facility] DATE CREATED AUTHOR AUTHOR'S ORGANIZ ATION 07/21/2024 [facility] Goals (unrecognized section and content) Goals may be documented in a n alternate section Source Comments (unrecognize d section and content) In the event this informatio n is protected by the Federal Confidentiality of Alcohol and Drug Abuse Patient Records regulations: The Federal rules restrict any use of the information to criminally investigate or prosecute any alcohol or drug abuse patient.[facility] Reason for Visit (unrecogniz ed section and content) Reason Comments New Patient Consult cervical spi ne Care Teams (unrecognized sec tion and content) [employer] Relationship Specialty Start Date End Date Ben Fung MD [address] [place] [address] PCP - General Family Medicine 10/27/17 FOR RECORDS PERTAINING TO PATIENTS WHO ARE OR HAVE BEEN ENROLLED IN A CHEMICAL DEPENDENCY/SUBSTANCEABUSE PROGRAM, SOME INFORMATION MAY BE OMITTED. This clinical summary was aggregated from multiple sources. Caution should be exercised in using it in the provision of clinical care. This summary normalizes information from multiple sources, and as a consequence, information in this document may materially change the coding, format and clinical context of patient data. In addition, data may be omitted in some cases. CLINICAL DECISIONS SHOULD BE BASED ON THE PRIMARY CLINICAL RECORDS. [employer] provides no warranty or guarantee of the accuracy or completeness of information in this document.
[2025-01-17 08:59] LABS: Creatinine, Urine (random) 83.70 mg/dL (39.00-259.00)
[2025-01-17 09:01] LABS: Microalbumin,Random Urine < 12.0 mg/L (NO RANGE EST.)
[2025-01-17 09:18] LABS: AST(SGOT) 28 U/L (<=37); Alanine Aminotransfer ALT/SGPT 46 U/L (<=46); Albumin, Serum 4.4 g/dL (3.5-5.0); Alkaline Phosphatase 79 U/L (40-129); Anion Gap 12 (5-15); BUN 17 mg/dL (4-19); BUN/Creat Ratio 19.0 RATIO (10-20); Calcium,Total 9.6 mg/dL (7.6-11.0); Carbon Dioxide 28.0 mmol/L (21.0-32.0); Chloride 102 mmol/L (98-108); Cholesterol 133 mg/dL (<=200); Globulin 2.9 g/dL (2.2-4.2); Glucose 145 mg/dL (70-99); Low Density Lipoprotein Calc. 68 mg/dL; Potassium 3.7 mmol/L (3.3-5.1); Triglycerides 74 mg/dL; Very Low Density Lipoprotein 15 mg/dL (5-40); Vitamin D,25 Hydroxy 31.8 ng/mL (30-100); cholesterol:hdl ratio screen 2.65
== END | disposition home or self-care (01) ==
LOC: LAB 06:30
PROVIDERS: PCP Nurse Practitioner Family; Referring Provider Nurse Practitioner Family; Visit Provider Nurse Practitioner Family
DX: E10.65 Type 1 diabetes mellitus with hyperglycemia (principal)
CPT/HCPCS: 36415; 80053; 80061; 82043; 82306; 82570; 84443